=== PATIENT | male | born 1950 | race Caucasian/White ===

== ENCOUNTER 2016-10-15 08:23 | Emergency (ER) | payer OTHER, MEDICARE ==
[2016-10-15] MEDS ORDERED: ASPIRIN 81 MG CHEW TABLET As Ordered ONE (09:03)
[2016-10-15] MEDS ORDERED: NITROGLYCERIN 0.4 MG SUBL TABLET As Ordered ONE (09:03)
[2016-10-15 09:37] LABS: BASO # 0.1 K/mm3 (0.0-0.2); BASO % 0.8 % (0.0-1.0); EOS # 0.1 K/mm3 (0.0-0.50); EOS % 1.1 % (0.0-3.0); LARGE UNSTAINED CELL # 0.1 K/mm3 (0.0-0.4); LARGE UNSTAINED CELL % 1.4 % (0.0-4.0); LYMPH # 0.9 K/mm3 (1.5-4.5); LYMPH % 7.9 % (24.0-44.0); MEAN CORPUSCULAR HEMOGLOBIN 29.7 pg (27.0-33.0); MEAN CORPUSCULAR HGB CONC 32.7 g/dl (32.0-36.5); MONO # 0.7 K/mm3 (0.0-0.8); MONO % 6.9 % (0.0-5.0); NEUTROPHILS # 8.5 K/mm3 (1.8-7.7); NEUTROPHILS % 81.9 % (36.0-66.0); PLATELET COUNT, AUTOMATED 181 k/mm3 (150-450); RED CELL DISTRIBUTION WIDTH 12.8 % (11.5-14.5); WHITE BLOOD COUNT 10.3 K/mm3 (4.0-10.0)
[2016-10-15 09:55] LABS: BLOOD UREA NITROGEN 10 MG/DL (7-18); CALCIUM LEVEL 8.8 MG/DL (8.8-10.2); CARBON DIOXIDE LEVEL 31 MEQ/L (21-32); CHLORIDE LEVEL 104 MEQ/L (98-107); CREATININE FOR GFR 0.85 MG/DL (0.70-1.30); GLUCOSE, FASTING 114 MG/DL (80-110); POTASSIUM SERUM 4.2 MEQ/L (3.5-5.1)
[2016-10-15 10:01] LABS: ANION GAP 7 MEQ/L (8-16); SODIUM LEVEL 142 MEQ/L (136-145)
[2016-10-15] MEDS ORDERED: ACETAMINOPHEN TAB 650MG DOSE (2X325MG) As Ordered ONE (10:47)
--- NOTE | 2016-10-15 17:09 | EDDOCDS ---
Nurse's Notes [facility] Name: Anand Burger Age: 66 yrs Sex: Male : 1950 Arrival Date: 10/15/2016 Time: 08:23 Bed 12 Private MD: Eb Quintana H Diagnosis: Acute sinusitis;Chest pain, unspecified Presentation: 10/15 08:28 Presenting complaint: Patient states: head cold for 10 days. today developed chest kr3 'ache' on and off. Reports minimal cough with head stuffiness. Aspirin was not taken prior to arrival. Adult Sepsis Screening: The patient does not have new or worsening altered mentation. Patient's respiratory rate is less than 22. Systolic blood pressure is greater than 100. Patient has a qSOFA score of 0- Negative Sepsis Screen. Suicide/Homicide risk assessment- the patient denies having any suicidal and/or homicidal ideations and does not present with any other emotional, behavioral or mental health complaints. 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 Transition of care: patient was not received from another setting of care. 08:28 Acuity: ROWDY Level 3 kr3 08:28 Method Of Arrival: Walkin/Carried/Asstd kr3 Triage Assessment: 08:32 General: Appears in no apparent distress, comfortable, Behavior is cooperative. Pain: kr3 Location: chest Pain currently is 2 out of 10 on a pain scale. Quality of pain is described as aching. EENT: Reports pain in head Pain is 5 out of 10 on a pain scale. EENT: Reports nasal congestion. Cardiovascular: Chest pain is described as mild, radiates Does not radiate. episodes are intermittent began 2 hours prior to arrival. Respiratory: Respiratory effort is even, unlabored, Denies cough, shortness of breath. Derm: Skin is normal. Historical: - Allergies: Augmentin; - Home Meds: 1. aspirin 81 mg Oral tab 1 tab once daily (Last dose: 10/14/2016) 2. Aleve 220 mg Oral tab 1 tab every 8 hours (Last dose: 10/14/2016) 3. Loratadine Oral once daily (Last dose: 10/14/2016) 4. simvastatin 40 mg Oral tab 1 tab nightly (Last dose: 10/14/2016) 5. Multivitamin Oral 1 tab daily (Last dose: 10/14/2016) 6. ibuprofen 200 mg Oral cap 2 caps as needed - PMHx: High Cholesterol; Seasonal Allergies; - PSHx: left shoulder; - Social history: Smoking status: Patient states was never smoker of tobacco. No barriers to communication noted, The patient speaks fluent Martiniquais, Speaks appropriately for age. - Family history: Not pertinent. - : The pt / caregiver states he / she is not on anticoagulants. Home medication list is obtained from the patient. - Exposure Risk Screening:: None identified. Screenin:06 Screening information is obtained from the patient. Fall risk: No risks identified. bcj Assistance ADL's: requires no assistance with activities of daily living. Abuse/DV Screen: The patient / caregiver reports he/she is: not in a situation that causes fear, pain or injury. Nutritional screening: No deficits noted. Advance Directives: Currently, there is no health care proxy. home support is adequate. 17:01 Screening information is obtained from the patient. Fall risk: No risks identified. ja5 Assistance ADL's: requires no assistance with activities of daily living. Abuse/DV Screen: The patient / caregiver reports he/she is: not in a situation that causes fear, pain or injury. Nutritional screening: On no prescribed diet. Advance Directives: Currently, there is no health care proxy. There is no active DNR order. There is no living will. There is no Power of Farm Appraiser. home support is adequate. 17:02 Screening information is obtained from the patient. Fall risk: No risks identified. ja5 Assistance ADL's: requires no assistance with activities of daily living. Abuse/DV Screen: The patient / caregiver reports he/she is: not in a situation that causes fear, pain or injury. Nutritional screening: No deficits noted. On no prescribed diet. Advance Directives: Currently, there is no health care proxy. There is no active DNR order. There is no living will. There is no Power of Farm Appraiser. home support is adequate. Assessment: 10:55 General: Appears in no apparent distress, comfortable, Behavior is cooperative. Pain: bcj Denies pain. Neurological: Level of Consciousness is awake, alert, Oriented to person, place, time. Cardiovascular: Rhythm is sinus rhythm No ectopy. Chest pain is denied. Respiratory: Airway is patent Respiratory effort is even, unlabored, Respiratory pattern is regular. Derm: Skin is pink, warm & dry. 12:11 General: Appears in no apparent distress, comfortable, Behavior is cooperative. Pain: bcj Denies pain. Cardiovascular: Rhythm is sinus rhythm Chest pain is denied. Derm: Skin is pink, warm & dry. 13:42 General: Appears in no apparent distress, comfortable, Behavior is cooperative. Pain: bcj Denies pain. Neurological: Level of Consciousness is awake, alert, Oriented to person, place. Cardiovascular: Rhythm is sinus rhythm. Respiratory: Airway is patent Respiratory effort is even, unlabored. Derm: Skin is pink, warm & dry. 16:16 General: Appears in no apparent distress, comfortable, Behavior is cooperative. Pain: bcj Denies pain. Neurological: Level of Consciousness is awake, alert. Cardiovascular: Rhythm is sinus rhythm. Derm: Skin is pink, warm & dry. 17:00 General: Appears in no apparent distress, Behavior is appropriate for age, cooperative. ja5 Neurological: Level of Consciousness is awake, alert, Oriented to person, place, time. Cardiovascular: Rhythm is sinus rhythm Chest pain is denied. Respiratory: Airway is compromised Respiratory effort is even, unlabored, Respiratory pattern is regular. Derm: Skin is pink, warm & dry. Vital Signs: 08:32 BP 187 / 99; Pulse 102; Resp 16; Temp 98.3(O); Pulse Ox 97% on R/A; Weight 76.2 kg (R); kr3 Height 5 ft. 5 in. (165.10 cm) (R); 08:42 Pulse 96 MON; Pulse Ox 96% ; ja5 08:43 BP 176 / 85 (auto/); ja5 08:57 Pulse 92 MON; Pulse Ox 94% ; ja5 08:58 BP 160 / 78 (auto/); ja5 09:20 Pulse 54 MON; Pulse Ox 97% ; ja5 09:21 BP 87 / 43 (auto/); ja5 09:22 Pulse 54 MON; Pulse Ox 97% ; ja5 09:23 BP 91 / 55 (auto/); ja5 09:25 Pulse 66 MON; Pulse Ox 95% ; ja5 09:26 BP 118 / 63 (auto/); ja5 10:06 BP 118 / 63 RA Supine; Pulse 83; Resp 16; Temp 99.0(O); Pulse Ox 96% on R/A; rs6 10:06 BP 143 / 73 (auto/); bcj 10:06 Pulse 82 MON; Pulse Ox 94% ; bcj 10:21 BP 127 / 63 (auto/); bcj 10:21 Pulse 78 MON; Pulse Ox 96% ; bcj 10:36 BP 130 / 65 (auto/); bcj 10:36 Pulse 78 MON; Pulse Ox 95% ; bcj 10:51 BP 146 / 65 (auto/); bcj 10:51 Pulse 82 MON; Pulse Ox 98% ; bcj 11:06 BP 140 / 65 (auto/); bcj 11:06 Pulse 80 MON; Pulse Ox 95% ; bcj 11:21 BP 139 / 64 (auto/); bcj 11:21 Pulse 76 MON; Pulse Ox 95% ; bcj 11:36 BP 127 / 60 (auto/); bcj 11:36 Pulse 78 MON; Pulse Ox 94% ; bcj 11:51 BP 150 / 67 (auto/); bcj 11:51 Pulse 80 MON; Pulse Ox 94% ; bcj 12:06 BP 141 / 64 (auto/); bcj 12:06 Pulse 80 MON; Pulse Ox 93% ; bcj 16:59 BP 169 / 79; Pulse 81; Resp 14; Temp 98.8(O); Pulse Ox 95% ; Pain 2/10; ja5 08:32 Body Mass Index 27.96 (76.20 kg, 165.10 cm) kr3 Vitals: 08:32 Log In Time: October 15, 2016 at 08:22. kr3 10:55 Refer to monitor trend for complete vital signs trends. [facility] ED Course: 08:24 Patient visited by Anyi Mayfield Reg. lg 08:24 Eb Quintana is Private Physician. lg 08:24 Patient moved to Waiting lg 08:30 Triage Initiated kr3 08:36 Patient moved to 12 kr3 08:39 Patient visited by Jeremy Marshall RN. bcj 08:42 Cedrick Rivera MD is Attending Physician. br1 08:43 EKG done. (by ED staff). Reviewed by Cedrick Rivera MD. nb2 08:49 Patient visited by Cedrick Rivera MD. br1 09:15 [facility] Payment Agreement was scanned into [employer] and attached to record. lg 09:29 Inserted peripheral IV: 20gauge IV in left antecubital area. ja5 10:06 No apparent distress. Resting quietly. awaiting re-evaluation by ER physician. bcj 10:06 The patient / caregiver is instructed regarding the plan of care and ED course. Patient akua has correct armband on for positive identification. Placed in gown. Bed in low position. Call light in reach. Side rails up X 1. school lunch monitor on. Pulse ox on. NIBP on. 10:06 IV is intact. bcj 10:07 Patient visited by Jessica Steven PCA. rs6 10:21 Patient visited by Cedrick Rivera MD. br1 10:58 Patient visited by Jeremy Marshall RN. bcj 11:06 No apparent distress. Resting quietly. awaiting re-evaluation by ER physician. bcj 11:06 IV is intact. bcj 12:14 Patient visited by Jeremy Marshall RN. bcj 13:42 No apparent distress. Resting quietly. awaiting re-evaluation by ER physician. bcj 13:42 IV is intact. Labs drawn. (by ED staff). bcj 13:43 Patient visited by Jeremy Marshall RN. bcj 14:30 EKG done. (by ED staff). Reviewed by Cedrick Rivera MD. dem1 14:32 Patient visited by Eufemia Fu. dem1 16:16 No apparent distress. Resting quietly. Awaiting bed assignment. bcj 16:16 IV is intact. O2 via nasal cannula \T\ 2L/min. bcj 16:17 Patient visited by Jeremy Marshall RN. bcj 16:46 [facility] is Referral Physician. br1 16:46 Audie Grant MD is Referral Physician. br1 17:03 Discontinued IV bleeding controlled, pressure dressing applied, No redness/swelling at ja5 site. No procedures done that require assistance. Labs drawn. EKG done. Administered Medications: 09:13 Drug: Aspirin 324 mg [aspirin 81 mg chewable tablet (4 tabs)] Route: PO; ja5 09:13 Drug: Nitrostat 0.4 mg [Nitrostat 0.4 mg sublingual tablet (1 tabs)] Route: Sublingual; [facility] 10:48 Drug: Acetaminophen 650 mg [acetaminophen 325 mg tablet (2 tabs)] Route: PO; bcj Order Results: Lab Order: B-Type Natiuretic Peptide; SPEC'M 10/15/16 09:25 Test: BRAIN NATRIURETIC PEPTIDE; Value: 22.4; Range: <100; Units: PG/ML; Status: F Lab Order: Basic Metabolic Profile; SPEC'M 10/15/16 09:25 Test: GLUCOSE, FASTING; Value: 114; Range: 80-110; Abnormal: Above high normal; Units: MG/DL; Status: F Test: BLOOD UREA NITROGEN; Value: 10; Range: 7-18; Units: MG/DL; Status: F Test: CREATININE FOR GFR; Value: 0.85; Range: 0.70-1.30; Units: MG/DL; Status: F Test: SODIUM LEVEL; Value: 142; Range: 136-145; Units: MEQ/L; Status: F Test: POTASSIUM SERUM; Value: 4.2; Range: 3.5-5.1; Units: MEQ/L; Status: F Test: CHLORIDE LEVEL; Value: 104; Range: 98-107; Units: MEQ/L; Status: F Test: CARBON DIOXIDE LEVEL; Value: 31; Range: 21-32; Units: MEQ/L; Status: F Test: ANION GAP; Value: 7; Range: 8-16; Abnormal: Below low normal; Units: MEQ/L; Status: F Test: CALCIUM LEVEL; Value: 8.8; Range: 8.8-10.2; Units: MG/DL; Status: F Test Note: ; --- 10/15/16 1001 --- NA previously reported as: 142 MEQ/L Lab Order: CBC with Diff; SPEC'M 10/15/16 09:25 Test: WHITE BLOOD COUNT; Value: 10.3; Range: 4.0-10.0; Abnormal: Above high normal; Units: K/mm3; Status: F Test: RED BLOOD COUNT; Value: 4.91; Range: 4.30-6.10; Units: M/mm3; Status: F Test: HEMOGLOBIN; Value: 14.6; Range: 14.0-18.0; Units: g/dl; Status: F Test: HEMATOCRIT; Value: 44.6; Range: 42.0-52.0; Units: %; Status: F Test: MEAN CORPUSCULAR VOLUME; Value: 91.0; Range: 80.0-96.0; Units: fl; Status: F Test: MEAN CORPUSCULAR HEMOGLOBIN; Value: 29.7; Range: 27.0-33.0; Units: pg; Status: F Test: MEAN CORPUSCULAR HGB CONC; Value: 32.7; Range: 32.0-36.5; Units: g/dl; Status: F Test: RED CELL DISTRIBUTION WIDTH; Value: 12.8; Range: 11.5-14.5; Units: %; Status: F Test: PLATELET COUNT, AUTOMATED; Value: 181; Range: 150-450; Units: k/mm3; Status: F Test: NEUTROPHILS %; Value: 81.9; Range: 36.0-66.0; Abnormal: Above high normal; Units: %; Status: F Test: LYMPH %; Value: 7.9; Range: 24.0-44.0; Abnormal: Below low normal; Units: %; Status: F Test: MONO %; Value: 6.9; Range: 0.0-5.0; Abnormal: Above high normal; Units: %; Status: F Test: EOS %; Value: 1.1; Range: 0.0-3.0; Units: %; Status: F Test: BASO %; Value: 0.8; Range: 0.0-1.0; Units: %; Status: F Test: LARGE UNSTAINED CELL %; Value: 1.4; Range: 0.0-4.0; Units: %; Status: F Test: NEUTROPHILS #; Value: 8.5; Range: 1.8-7.7; Abnormal: Above high normal; Units: K/mm3; Status: F Test: LYMPH #; Value: 0.9; Range: 1.5-4.5; Abnormal: Below low normal; Units: K/mm3; Status: F Test: MONO #; Value: 0.7; Range: 0.0-0.8; Units: K/mm3; Status: F Test: EOS #; Value: 0.1; Range: 0.0-0.50; Units: K/mm3; Status: F Test: BASO #; Value: 0.1; Range: 0.0-0.2; Units: K/mm3; Status: F Test: LARGE UNSTAINED CELL #; Value: 0.1; Range: 0.0-0.4; Units: K/mm3; Status: F Lab Order: Cardiac Injury Profile; [facility] 10/15/16 09:25 Test: CPK CREATINE PHOSPHOKINASE; Value: 90; Range: 39-308; Units: U/L; Status: F Test: CK-MB VALUE MASS; Value: 1.0; Range: 0.0-3.6; Units: NG/ML; Status: F Test: MB/CK RELATIVE INDEX; Value: 1.11; Range: < OR =4; Status: F Test Note: ; DIAGNOSIS CRITERIA MMB ng/ml Relative Index (RI) NON-AMI < or = 5 N/A ASHER ZONE > 5 < or = 4 AMI > 5 > 4 Lab Order: Troponin; [facility] 10/15/16 09:25 Test: TROPONIN I; Value: < 0.02; Range: < 0.10; Units: NG/ML; Status: F Test Note: ; Troponin I Reference Interval for KS12 LOCI: 99th Percentile= 0.00-0.045 ng/ml Risk Stratification: <= 0.10 ng/ml Decreased Risk for Adverse Clinical Events. 0.10-1.50 ng/ml Increased Risk for Adverse Clinical Events. Evaluation of additional criterion and/or repeat testing in 2-6 hours is suggested to rule out myocardial damage. >= 1.50 ng/ml Indicative of Myocardial Injury. Lab Order: CARDIAC MARKER PANEL; [facility] 10/15/16 13:47 Test: CPK CREATINE PHOSPHOKINASE; Value: 79; Range: 39-308; Units: U/L; Status: F Test: CK-MB VALUE MASS; Value: 1.0; Range: 0.0-3.6; Units: NG/ML; Status: F Test: MB/CK RELATIVE INDEX; Value: 1.26; Range: < OR =4; Status: F Test: TROPONIN I; Value: < 0.02; Range: < 0.10; Units: NG/ML; Status: F Test Note: ; DIAGNOSIS CRITERIA MMB ng/ml Relative Index (RI) NON-AMI < or = 5 N/A ASHER ZONE > 5 < or = 4 AMI > 5 > 4 Outcome: 16:47 Discharge ordered by Provider. br1 17:03 Discharge Assessment: patient administered narcotics - no. The following High Risk 5 Discharge criteria are identified: None. Condition: stable. Property :Personal belongings accompany Pt. 17:07 No special radiology studies were completed. ja5 17:08 Patient left the ED. [email or web address] Signatures: Jeremy Marshall, RN RN Anyi Anderson, Reg Reg lg Tigist Quevedo,RN RN kr3 Cedrick Rivera MD MD br1 Eufemia Fu1 Jessica Steven, OFFICE CLERK ASSISTANT OFFICE CLERK ASSISTANT rs6 Cyndy Hernandez2 Naye Rios,RN RN ja5 Corrections: (The following items were deleted from the chart) 17:08 17:03 No special radiology studies were completed CT Study completed. 5 ja5 MTDD
--- NOTE | 2016-10-15 17:10 | EDDOCDS ---
Physician Documentation [facility] Name: Anand Burger Age: 66 yrs Sex: Male : 1950 Arrival Date: 10/15/2016 Time: 08:23 Bed 12 Private MD: Eb Quintana H Disposition: 10/15/16 16:47 Discharged to Home/Self Care. Impression: Acute sinusitis, Chest pain, unspecified. - Condition is Stable. - Discharge Instructions: Nonspecific Chest Pain, Sinusitis, Adult. - Prescriptions for Doxycycline Hyclate 100 mg Oral Tablet - take 1 tablet by ORAL route every 12 hours; 14 tablet. - Medication Reconciliation, Local Pharmacy Hours form. - Follow up: [facility]; When: 4 - 5 days; Reason: Recheck today's complaints. Follow up: Audie Grant MD; When: 4 - 5 days; Reason: Recheck today's complaints. - Problem is new. - Symptoms have improved. - Notes: You were seen in the ED for 10 days of sinus pressure and congestion concerning for sinusitis with chest pain today. Bloodwork along with EKG of the heart, chest Xray and cardiac monitoring showed no other acute findings. We have discussed the case with cardiology as well. As you are feeling better you may return home to follow up with Cardiology and your primary doctor - please call to arrange to be seen. You may take the antibiotics as well. Return to the ED for any return of chest pain, trouble breathing, lightheadedness, loss of consciousness or any other concerns. Historical: - Allergies: Augmentin; - Home Meds: 1. aspirin 81 mg Oral tab 1 tab once daily (Last dose: 10/14/2016) 2. Aleve 220 mg Oral tab 1 tab every 8 hours (Last dose: 10/14/2016) 3. Loratadine Oral once daily (Last dose: 10/14/2016) 4. simvastatin 40 mg Oral tab 1 tab nightly (Last dose: 10/14/2016) 5. Multivitamin Oral 1 tab daily (Last dose: 10/14/2016) 6. ibuprofen 200 mg Oral cap 2 caps as needed - PMHx: High Cholesterol; Seasonal Allergies; - PSHx: left shoulder; - Social history: Smoking status: Patient states was never smoker of tobacco. No barriers to communication noted, The patient speaks fluent Polish, Speaks appropriately for age. - Family history: Not pertinent. - : The pt / caregiver states he / she is not on anticoagulants. Home medication list is obtained from the patient. - Exposure Risk Screening:: None identified. Vital Signs: 10/15 08:32 BP 187 / 99; Pulse 102; Resp 16; Temp 98.3(O); Pulse Ox 97% on R/A; Weight 76.2 kg / kr3 167.99 lbs (R); Height 5 ft. 5 in. (165.10 cm) (R); 08:42 Pulse 96 MON; Pulse Ox 96% ; ja5 08:43 BP 176 / 85 (auto/); ja5 08:57 Pulse 92 MON; Pulse Ox 94% ; ja5 08:58 BP 160 / 78 (auto/); ja5 09:20 Pulse 54 MON; Pulse Ox 97% ; ja5 09:21 BP 87 / 43 (auto/); ja5 09:22 Pulse 54 MON; Pulse Ox 97% ; ja5 09:23 BP 91 / 55 (auto/); ja5 09:25 Pulse 66 MON; Pulse Ox 95% ; ja5 09:26 BP 118 / 63 (auto/); ja5 10:06 BP 118 / 63 RA Supine; Pulse 83; Resp 16; Temp 99.0(O); Pulse Ox 96% on R/A; rs6 10:06 BP 143 / 73 (auto/); bcj 10:06 Pulse 82 MON; Pulse Ox 94% ; bcj 10:21 BP 127 / 63 (auto/); bcj 10:21 Pulse 78 MON; Pulse Ox 96% ; bcj 10:36 BP 130 / 65 (auto/); bcj 10:36 Pulse 78 MON; Pulse Ox 95% ; bcj 10:51 BP 146 / 65 (auto/); bcj 10:51 Pulse 82 MON; Pulse Ox 98% ; bcj 11:06 BP 140 / 65 (auto/); bcj 11:06 Pulse 80 MON; Pulse Ox 95% ; bcj 11:21 BP 139 / 64 (auto/); bcj 11:21 Pulse 76 MON; Pulse Ox 95% ; bcj 11:36 BP 127 / 60 (auto/); bcj 11:36 Pulse 78 MON; Pulse Ox 94% ; bcj 11:51 BP 150 / 67 (auto/); bcj 11:51 Pulse 80 MON; Pulse Ox 94% ; bcj 12:06 BP 141 / 64 (auto/); bcj 12:06 Pulse 80 MON; Pulse Ox 93% ; bcj 16:59 BP 169 / 79; Pulse 81; Resp 14; Temp 98.8(O); Pulse Ox 95% ; Pain 2/10; ja5 08:32 Body Mass Index 27.96 (76.20 kg, 165.10 cm) kr3 MDM: 08:36 ECG WITH READING ER PHYS+CARDIAG ordered. EDMS 08:50 Hitcher/Pulse Ox/q 30 min VS ordered. br1 08:50 IV Saline Lock ordered. br1 08:50 Rhythm Strip to chart ordered. br1 08:50 Undress patient appropriately for examination ordered. br1 08:50 Aspirin 324 mg PO once ordered. br1 08:50 Nitrostat 0.4 mg Sublingual once ordered. br1 08:51 B-Type Natiuretic Peptide Ordered. EDMS 08:51 Basic Metabolic Profile Ordered. EDMS 08:51 CBC with Diff Ordered. EDMS 08:51 Cardiac Injury Profile Ordered. EDMS 08:51 Troponin Ordered. EDMS 08:51 Chest, 2 View (pa\E\lat) Ordered. EDMS 09:02 Financial registration complete. lg 09:15 [facility] Payment Agreement was scanned into [employer] and attached to record. lg 10:03 Recheck Vital Signs, perform reassessment and enter into [employer] ordered. br1 10:07 Basic Metabolic Profile Reviewed. br1 10:07 CBC with Diff Reviewed. br1 10:07 B-Type Natiuretic Peptide Reviewed. br1 10:07 Cardiac Injury Profile Reviewed. br1 10:07 Troponin Reviewed. br1 10:09 Repeat EKG (put time details section) ordered. br1 10:09 Redraw CIP &Troponin (put time in details section) ordered. br1 10:20 Acetaminophen Tablet 650 mg PO once ordered. br1 10:23 Redraw CIP &Troponin (put time in details section) complete. ar3 10:24 Repeat EKG (put time details section) complete. ar3 10:24 ECG WITH READING ER PHYS ordered. EDMS 10:25 CARDIAC MARKER PANEL Ordered. EDMS 12:10 REGULAR+DIET ordered. EDMS 16:04 CARDIAC MARKER PANEL Reviewed. br1 Administered Medications: 09:13 Drug: Aspirin 324 mg [aspirin 81 mg chewable tablet (4 tabs)] Route: PO; ja5 09:13 Drug: Nitrostat 0.4 mg [Nitrostat 0.4 mg sublingual tablet (1 tabs)] Route: Sublingual; ja5 10:48 Drug: Acetaminophen 650 mg [acetaminophen 325 mg tablet (2 tabs)] Route: PO; akua Signatures: Dispatcher [employer] EDJeremy Lombardi, RN RN Anyi Anderson, Reg Reg lg Tigist Quevedo,RN RN kr3 Cedrick Rivera MD MD br1 Sharla Gerber, WEALTH MANAGEMENT MANAGER WEALTH MANAGEMENT MANAGER ar3 Naye Rios,RN RN ja5 The chart was reviewed and I authenticate all verbal orders and agree with the evaluation and treatment provided.Attachments: 09:15 [facility] Payment Agreement lg MTDD
--- NOTE | 2016-10-16 12:58 | ECGEPIP ---
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
--- NOTE | 2016-10-16 13:05 | ECGEPIP ---
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
--- NOTE | 2016-10-17 18:09 | EDDOCDS ---
Physician Documentation [facility] Name: Anand Burger Age: 66 yrs Sex: Male : 1950 Arrival Date: 10/15/2016 Time: 08:23 Bed 12 Private MD: Eb Quintana H Disposition: 10/15/16 16:47 Discharged to Home/Self Care. Impression: Acute sinusitis, Chest pain, unspecified. - Condition is Stable. - Discharge Instructions: Nonspecific Chest Pain, Sinusitis, Adult. - Prescriptions for Doxycycline Hyclate 100 mg Oral Tablet - take 1 tablet by ORAL route every 12 hours; 14 tablet. - Medication Reconciliation, Local Pharmacy Hours form. - Follow up: [facility]; When: 4 - 5 days; Reason: Recheck today's complaints. Follow up: Audie Grant MD; When: 4 - 5 days; Reason: Recheck today's complaints. - Problem is new. - Symptoms have improved. - Notes: You were seen in the ED for 10 days of sinus pressure and congestion concerning for sinusitis with chest pain today. Bloodwork along with EKG of the heart, chest Xray and cardiac monitoring showed no other acute findings. We have discussed the case with cardiology as well. As you are feeling better you may return home to follow up with Cardiology and your primary doctor - please call to arrange to be seen. You may take the antibiotics as well. Return to the ED for any return of chest pain, trouble breathing, lightheadedness, loss of consciousness or any other concerns. Historical: - Allergies: Augmentin; - Home Meds: 1. aspirin 81 mg Oral tab 1 tab once daily (Last dose: 10/14/2016) 2. Aleve 220 mg Oral tab 1 tab every 8 hours (Last dose: 10/14/2016) 3. Loratadine Oral once daily (Last dose: 10/14/2016) 4. simvastatin 40 mg Oral tab 1 tab nightly (Last dose: 10/14/2016) 5. Multivitamin Oral 1 tab daily (Last dose: 10/14/2016) 6. ibuprofen 200 mg Oral cap 2 caps as needed - PMHx: High Cholesterol; Seasonal Allergies; - PSHx: left shoulder; - Social history: Smoking status: Patient states was never smoker of tobacco. No barriers to communication noted, The patient speaks fluent Monegasque, Speaks appropriately for age. - Family history: Not pertinent. - : The pt / caregiver states he / she is not on anticoagulants. Home medication list is obtained from the patient. - Exposure Risk Screening:: None identified. Vital Signs: 10/15 08:32 BP 187 / 99; Pulse 102; Resp 16; Temp 98.3(O); Pulse Ox 97% on R/A; Weight 76.2 kg / kr3 167.99 lbs (R); Height 5 ft. 5 in. (165.10 cm) (R); 08:42 Pulse 96 MON; Pulse Ox 96% ; ja5 08:43 BP 176 / 85 (auto/); ja5 08:57 Pulse 92 MON; Pulse Ox 94% ; ja5 08:58 BP 160 / 78 (auto/); ja5 09:20 Pulse 54 MON; Pulse Ox 97% ; ja5 09:21 BP 87 / 43 (auto/); ja5 09:22 Pulse 54 MON; Pulse Ox 97% ; ja5 09:23 BP 91 / 55 (auto/); ja5 09:25 Pulse 66 MON; Pulse Ox 95% ; ja5 09:26 BP 118 / 63 (auto/); ja5 10:06 BP 118 / 63 RA Supine; Pulse 83; Resp 16; Temp 99.0(O); Pulse Ox 96% on R/A; rs6 10:06 BP 143 / 73 (auto/); bcj 10:06 Pulse 82 MON; Pulse Ox 94% ; bcj 10:21 BP 127 / 63 (auto/); bcj 10:21 Pulse 78 MON; Pulse Ox 96% ; bcj 10:36 BP 130 / 65 (auto/); bcj 10:36 Pulse 78 MON; Pulse Ox 95% ; bcj 10:51 BP 146 / 65 (auto/); bcj 10:51 Pulse 82 MON; Pulse Ox 98% ; bcj 11:06 BP 140 / 65 (auto/); bcj 11:06 Pulse 80 MON; Pulse Ox 95% ; bcj 11:21 BP 139 / 64 (auto/); bcj 11:21 Pulse 76 MON; Pulse Ox 95% ; bcj 11:36 BP 127 / 60 (auto/); bcj 11:36 Pulse 78 MON; Pulse Ox 94% ; bcj 11:51 BP 150 / 67 (auto/); bcj 11:51 Pulse 80 MON; Pulse Ox 94% ; bcj 12:06 BP 141 / 64 (auto/); bcj 12:06 Pulse 80 MON; Pulse Ox 93% ; bcj 16:59 BP 169 / 79; Pulse 81; Resp 14; Temp 98.8(O); Pulse Ox 95% ; Pain 2/10; ja5 08:32 Body Mass Index 27.96 (76.20 kg, 165.10 cm) kr3 MDM: 08:36 ECG WITH READING ER PHYS+CARDIAG ordered. EDMS 08:50 Photo Specialist/Pulse Ox/q 30 min VS ordered. br1 08:50 IV Saline Lock ordered. br1 08:50 Rhythm Strip to chart ordered. br1 08:50 Undress patient appropriately for examination ordered. br1 08:50 Aspirin 324 mg PO once ordered. br1 08:50 Nitrostat 0.4 mg Sublingual once ordered. br1 08:51 B-Type Natiuretic Peptide Ordered. EDMS 08:51 Basic Metabolic Profile Ordered. EDMS 08:51 CBC with Diff Ordered. EDMS 08:51 Cardiac Injury Profile Ordered. EDMS 08:51 Troponin Ordered. EDMS 08:51 Chest, 2 View (pa\E\lat) Ordered. EDMS 09:02 Financial registration complete. lg 09:15 [facility] Payment Agreement was scanned into [employer] and attached to record. lg 10:03 Recheck Vital Signs, perform reassessment and enter into [employer] ordered. br1 10:07 Basic Metabolic Profile Reviewed. br1 10:07 CBC with Diff Reviewed. br1 10:07 B-Type Natiuretic Peptide Reviewed. br1 10:07 Cardiac Injury Profile Reviewed. br1 10:07 Troponin Reviewed. br1 10:09 Repeat EKG (put time details section) ordered. br1 10:09 Redraw CIP &Troponin (put time in details section) ordered. br1 10:20 Acetaminophen Tablet 650 mg PO once ordered. br1 10:23 Redraw CIP &Troponin (put time in details section) complete. ar3 10:24 Repeat EKG (put time details section) complete. ar3 10:24 ECG WITH READING ER PHYS ordered. EDMS 10:25 CARDIAC MARKER PANEL Ordered. EDMS 12:10 REGULAR+DIET ordered. EDMS 16:04 CARDIAC MARKER PANEL Reviewed. br1 10/16 15:05 T-Sheet-- Draft Copy was scanned into [employer] and attached to record. kf3 17:13 ECG/EKG was scanned into [employer] and attached to record. kf3 17:14 Trend VS was scanned into [employer] and attached to record. kf3 Administered Medications: 10/15 09:13 Drug: Aspirin 324 mg [aspirin 81 mg chewable tablet (4 tabs)] Route: PO; ja5 09:13 Drug: Nitrostat 0.4 mg [Nitrostat 0.4 mg sublingual tablet (1 tabs)] Route: Sublingual; ja5 10:48 Drug: Acetaminophen 650 mg [acetaminophen 325 mg tablet (2 tabs)] Route: PO; akua Signatures: Dispatcher [employer] EDJeremy Lombardi RN RN bcj Anyi Mayfield, Reg Reg lg Tigist Quevedo,RN RN kr3 Sanchez Powers, Reg Reg kf3 Cedrick Rivera MD MD br1 Sharla Gerber, SAGGER PREPARER SAGGER PREPARER ar3 Naye Rios,RN RN ja5 The chart was reviewed and I authenticate all verbal orders and agree with the evaluation and treatment provided.Attachments: 09:15 [facility] Payment Agreement lg 10/16 15:05 T-Sheet-- Draft Copy kf3 17:13 ECG/EKG kf3 Chart Complete MTDD
--- NOTE | 2016-10-17 18:09 | EDDOCDS ---
Physician Documentation [facility] Name: Anand Burger Age: 66 yrs Sex: Male : 1950 Arrival Date: 10/15/2016 Time: 08:23 Bed 12 Private MD: Eb Quintana H Disposition: 10/15/16 16:47 Discharged to Home/Self Care. Impression: Acute sinusitis, Chest pain, unspecified. - Condition is Stable. - Discharge Instructions: Nonspecific Chest Pain, Sinusitis, Adult. - Prescriptions for Doxycycline Hyclate 100 mg Oral Tablet - take 1 tablet by ORAL route every 12 hours; 14 tablet. - Medication Reconciliation, Local Pharmacy Hours form. - Follow up: [facility]; When: 4 - 5 days; Reason: Recheck today's complaints. Follow up: Audie Grant MD; When: 4 - 5 days; Reason: Recheck today's complaints. - Problem is new. - Symptoms have improved. - Notes: You were seen in the ED for 10 days of sinus pressure and congestion concerning for sinusitis with chest pain today. Bloodwork along with EKG of the heart, chest Xray and cardiac monitoring showed no other acute findings. We have discussed the case with cardiology as well. As you are feeling better you may return home to follow up with Cardiology and your primary doctor - please call to arrange to be seen. You may take the antibiotics as well. Return to the ED for any return of chest pain, trouble breathing, lightheadedness, loss of consciousness or any other concerns. Historical: - Allergies: Augmentin; - Home Meds: 1. aspirin 81 mg Oral tab 1 tab once daily (Last dose: 10/14/2016) 2. Aleve 220 mg Oral tab 1 tab every 8 hours (Last dose: 10/14/2016) 3. Loratadine Oral once daily (Last dose: 10/14/2016) 4. simvastatin 40 mg Oral tab 1 tab nightly (Last dose: 10/14/2016) 5. Multivitamin Oral 1 tab daily (Last dose: 10/14/2016) 6. ibuprofen 200 mg Oral cap 2 caps as needed - PMHx: High Cholesterol; Seasonal Allergies; - PSHx: left shoulder; - Social history: Smoking status: Patient states was never smoker of tobacco. No barriers to communication noted, The patient speaks fluent Tongan, Speaks appropriately for age. - Family history: Not pertinent. - : The pt / caregiver states he / she is not on anticoagulants. Home medication list is obtained from the patient. - Exposure Risk Screening:: None identified. Vital Signs: 10/15 08:32 BP 187 / 99; Pulse 102; Resp 16; Temp 98.3(O); Pulse Ox 97% on R/A; Weight 76.2 kg / kr3 167.99 lbs (R); Height 5 ft. 5 in. (165.10 cm) (R); 08:42 Pulse 96 MON; Pulse Ox 96% ; ja5 08:43 BP 176 / 85 (auto/); ja5 08:57 Pulse 92 MON; Pulse Ox 94% ; ja5 08:58 BP 160 / 78 (auto/); ja5 09:20 Pulse 54 MON; Pulse Ox 97% ; ja5 09:21 BP 87 / 43 (auto/); ja5 09:22 Pulse 54 MON; Pulse Ox 97% ; ja5 09:23 BP 91 / 55 (auto/); ja5 09:25 Pulse 66 MON; Pulse Ox 95% ; ja5 09:26 BP 118 / 63 (auto/); ja5 10:06 BP 118 / 63 RA Supine; Pulse 83; Resp 16; Temp 99.0(O); Pulse Ox 96% on R/A; rs6 10:06 BP 143 / 73 (auto/); bcj 10:06 Pulse 82 MON; Pulse Ox 94% ; bcj 10:21 BP 127 / 63 (auto/); bcj 10:21 Pulse 78 MON; Pulse Ox 96% ; bcj 10:36 BP 130 / 65 (auto/); bcj 10:36 Pulse 78 MON; Pulse Ox 95% ; bcj 10:51 BP 146 / 65 (auto/); bcj 10:51 Pulse 82 MON; Pulse Ox 98% ; bcj 11:06 BP 140 / 65 (auto/); bcj 11:06 Pulse 80 MON; Pulse Ox 95% ; bcj 11:21 BP 139 / 64 (auto/); bcj 11:21 Pulse 76 MON; Pulse Ox 95% ; bcj 11:36 BP 127 / 60 (auto/); bcj 11:36 Pulse 78 MON; Pulse Ox 94% ; bcj 11:51 BP 150 / 67 (auto/); bcj 11:51 Pulse 80 MON; Pulse Ox 94% ; bcj 12:06 BP 141 / 64 (auto/); bcj 12:06 Pulse 80 MON; Pulse Ox 93% ; bcj 16:59 BP 169 / 79; Pulse 81; Resp 14; Temp 98.8(O); Pulse Ox 95% ; Pain 2/10; ja5 08:32 Body Mass Index 27.96 (76.20 kg, 165.10 cm) kr3 MDM: 08:36 ECG WITH READING ER PHYS+CARDIAG ordered. EDMS 08:50 Hospital Chief Financial Officer/Pulse Ox/q 30 min VS ordered. br1 08:50 IV Saline Lock ordered. br1 08:50 Rhythm Strip to chart ordered. br1 08:50 Undress patient appropriately for examination ordered. br1 08:50 Aspirin 324 mg PO once ordered. br1 08:50 Nitrostat 0.4 mg Sublingual once ordered. br1 08:51 B-Type Natiuretic Peptide Ordered. EDMS 08:51 Basic Metabolic Profile Ordered. EDMS 08:51 CBC with Diff Ordered. EDMS 08:51 Cardiac Injury Profile Ordered. EDMS 08:51 Troponin Ordered. EDMS 08:51 Chest, 2 View (pa\E\lat) Ordered. EDMS 09:02 Financial registration complete. lg 09:15 [facility] Payment Agreement was scanned into [employer] and attached to record. lg 10:03 Recheck Vital Signs, perform reassessment and enter into [employer] ordered. br1 10:07 Basic Metabolic Profile Reviewed. br1 10:07 CBC with Diff Reviewed. br1 10:07 B-Type Natiuretic Peptide Reviewed. br1 10:07 Cardiac Injury Profile Reviewed. br1 10:07 Troponin Reviewed. br1 10:09 Repeat EKG (put time details section) ordered. br1 10:09 Redraw CIP &Troponin (put time in details section) ordered. br1 10:20 Acetaminophen Tablet 650 mg PO once ordered. br1 10:23 Redraw CIP &Troponin (put time in details section) complete. ar3 10:24 Repeat EKG (put time details section) complete. ar3 10:24 ECG WITH READING ER PHYS ordered. EDMS 10:25 CARDIAC MARKER PANEL Ordered. EDMS 12:10 REGULAR+DIET ordered. EDMS 16:04 CARDIAC MARKER PANEL Reviewed. br1 10/16 15:05 T-Sheet-- Draft Copy was scanned into [employer] and attached to record. kf3 17:13 ECG/EKG was scanned into [employer] and attached to record. kf3 17:14 Trend VS was scanned into [employer] and attached to record. kf3 Administered Medications: 10/15 09:13 Drug: Aspirin 324 mg [aspirin 81 mg chewable tablet (4 tabs)] Route: PO; ja5 09:13 Drug: Nitrostat 0.4 mg [Nitrostat 0.4 mg sublingual tablet (1 tabs)] Route: Sublingual; ja5 10:48 Drug: Acetaminophen 650 mg [acetaminophen 325 mg tablet (2 tabs)] Route: PO; akua Signatures: Dispatcher [employer] EDJeremy Lombardi RN RN bcj Anyi Mayfield, Reg Reg lg Tigist Quevedo,RN RN kr3 Sanchez Powers, Reg Reg kf3 Cedrick Rivera MD MD br1 Sharla Gerber, STRETCH BOX TENDER STRETCH BOX TENDER ar3 Naye Rios,RN RN ja5 The chart was reviewed and I authenticate all verbal orders and agree with the evaluation and treatment provided.Attachments: 09:15 [facility] Payment Agreement lg 10/16 15:05 T-Sheet-- Draft Copy kf3 17:13 ECG/EKG kf3 Chart Complete MTDD
--- NOTE | 2016-10-17 18:10 | EDDOCDS ---
Nurse's Notes [facility] Name: Nilo Rubio Age: 66 yrs Sex: Male : 1950 Arrival Date: 10/15/2016 Time: 08:23 Bed 12 Private MD: Eb Quintana H Diagnosis: Acute sinusitis;Chest pain, unspecified Presentation: 10/15 08:28 Presenting complaint: Patient states: head cold for 10 days. today developed chest kr3 'ache' on and off. Reports minimal cough with head stuffiness. Aspirin was not taken prior to arrival. Adult Sepsis Screening: The patient does not have new or worsening altered mentation. Patient's respiratory rate is less than 22. Systolic blood pressure is greater than 100. Patient has a qSOFA score of 0- Negative Sepsis Screen. Suicide/Homicide risk assessment- the patient denies having any suicidal and/or homicidal ideations and does not present with any other emotional, behavioral or mental health complaints. 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 Transition of care: patient was not received from another setting of care. 08:28 Acuity: ROWDY Level 3 kr3 08:28 Method Of Arrival: Walkin/Carried/Asstd kr3 Triage Assessment: 08:32 General: Appears in no apparent distress, comfortable, Behavior is cooperative. Pain: kr3 Location: chest Pain currently is 2 out of 10 on a pain scale. Quality of pain is described as aching. EENT: Reports pain in head Pain is 5 out of 10 on a pain scale. EENT: Reports nasal congestion. Cardiovascular: Chest pain is described as mild, radiates Does not radiate. episodes are intermittent began 2 hours prior to arrival. Respiratory: Respiratory effort is even, unlabored, Denies cough, shortness of breath. Derm: Skin is normal. Historical: - Allergies: Augmentin; - Home Meds: 1. aspirin 81 mg Oral tab 1 tab once daily (Last dose: 10/14/2016) 2. Aleve 220 mg Oral tab 1 tab every 8 hours (Last dose: 10/14/2016) 3. Loratadine Oral once daily (Last dose: 10/14/2016) 4. simvastatin 40 mg Oral tab 1 tab nightly (Last dose: 10/14/2016) 5. Multivitamin Oral 1 tab daily (Last dose: 10/14/2016) 6. ibuprofen 200 mg Oral cap 2 caps as needed - PMHx: High Cholesterol; Seasonal Allergies; - PSHx: left shoulder; - Social history: Smoking status: Patient states was never smoker of tobacco. No barriers to communication noted, The patient speaks fluent Moldovan, Speaks appropriately for age. - Family history: Not pertinent. - : The pt / caregiver states he / she is not on anticoagulants. Home medication list is obtained from the patient. - Exposure Risk Screening:: None identified. Screenin:06 Screening information is obtained from the patient. Fall risk: No risks identified. bcj Assistance ADL's: requires no assistance with activities of daily living. Abuse/DV Screen: The patient / caregiver reports he/she is: not in a situation that causes fear, pain or injury. Nutritional screening: No deficits noted. Advance Directives: Currently, there is no health care proxy. home support is adequate. 17:01 Screening information is obtained from the patient. Fall risk: No risks identified. ja5 Assistance ADL's: requires no assistance with activities of daily living. Abuse/DV Screen: The patient / caregiver reports he/she is: not in a situation that causes fear, pain or injury. Nutritional screening: On no prescribed diet. Advance Directives: Currently, there is no health care proxy. There is no active DNR order. There is no living will. There is no Power of Technology Program Manager. home support is adequate. 17:02 Screening information is obtained from the patient. Fall risk: No risks identified. ja5 Assistance ADL's: requires no assistance with activities of daily living. Abuse/DV Screen: The patient / caregiver reports he/she is: not in a situation that causes fear, pain or injury. Nutritional screening: No deficits noted. On no prescribed diet. Advance Directives: Currently, there is no health care proxy. There is no active DNR order. There is no living will. There is no Power of Technology Program Manager. home support is adequate. Assessment: 10:55 General: Appears in no apparent distress, comfortable, Behavior is cooperative. Pain: bcj Denies pain. Neurological: Level of Consciousness is awake, alert, Oriented to person, place, time. Cardiovascular: Rhythm is sinus rhythm No ectopy. Chest pain is denied. Respiratory: Airway is patent Respiratory effort is even, unlabored, Respiratory pattern is regular. Derm: Skin is pink, warm & dry. 12:11 General: Appears in no apparent distress, comfortable, Behavior is cooperative. Pain: bcj Denies pain. Cardiovascular: Rhythm is sinus rhythm Chest pain is denied. Derm: Skin is pink, warm & dry. 13:42 General: Appears in no apparent distress, comfortable, Behavior is cooperative. Pain: bcj Denies pain. Neurological: Level of Consciousness is awake, alert, Oriented to person, place. Cardiovascular: Rhythm is sinus rhythm. Respiratory: Airway is patent Respiratory effort is even, unlabored. Derm: Skin is pink, warm & dry. 16:16 General: Appears in no apparent distress, comfortable, Behavior is cooperative. Pain: bcj Denies pain. Neurological: Level of Consciousness is awake, alert. Cardiovascular: Rhythm is sinus rhythm. Derm: Skin is pink, warm & dry. 17:00 General: Appears in no apparent distress, Behavior is appropriate for age, cooperative. ja5 Neurological: Level of Consciousness is awake, alert, Oriented to person, place, time. Cardiovascular: Rhythm is sinus rhythm Chest pain is denied. Respiratory: Airway is compromised Respiratory effort is even, unlabored, Respiratory pattern is regular. Derm: Skin is pink, warm & dry. Vital Signs: 08:32 BP 187 / 99; Pulse 102; Resp 16; Temp 98.3(O); Pulse Ox 97% on R/A; Weight 76.2 kg (R); kr3 Height 5 ft. 5 in. (165.10 cm) (R); 08:42 Pulse 96 MON; Pulse Ox 96% ; ja5 08:43 BP 176 / 85 (auto/); ja5 08:57 Pulse 92 MON; Pulse Ox 94% ; ja5 08:58 BP 160 / 78 (auto/); ja5 09:20 Pulse 54 MON; Pulse Ox 97% ; ja5 09:21 BP 87 / 43 (auto/); ja5 09:22 Pulse 54 MON; Pulse Ox 97% ; ja5 09:23 BP 91 / 55 (auto/); ja5 09:25 Pulse 66 MON; Pulse Ox 95% ; ja5 09:26 BP 118 / 63 (auto/); ja5 10:06 BP 118 / 63 RA Supine; Pulse 83; Resp 16; Temp 99.0(O); Pulse Ox 96% on R/A; rs6 10:06 BP 143 / 73 (auto/); bcj 10:06 Pulse 82 MON; Pulse Ox 94% ; bcj 10:21 BP 127 / 63 (auto/); bcj 10:21 Pulse 78 MON; Pulse Ox 96% ; bcj 10:36 BP 130 / 65 (auto/); bcj 10:36 Pulse 78 MON; Pulse Ox 95% ; bcj 10:51 BP 146 / 65 (auto/); bcj 10:51 Pulse 82 MON; Pulse Ox 98% ; bcj 11:06 BP 140 / 65 (auto/); bcj 11:06 Pulse 80 MON; Pulse Ox 95% ; bcj 11:21 BP 139 / 64 (auto/); bcj 11:21 Pulse 76 MON; Pulse Ox 95% ; bcj 11:36 BP 127 / 60 (auto/); bcj 11:36 Pulse 78 MON; Pulse Ox 94% ; bcj 11:51 BP 150 / 67 (auto/); bcj 11:51 Pulse 80 MON; Pulse Ox 94% ; bcj 12:06 BP 141 / 64 (auto/); bcj 12:06 Pulse 80 MON; Pulse Ox 93% ; bcj 16:59 BP 169 / 79; Pulse 81; Resp 14; Temp 98.8(O); Pulse Ox 95% ; Pain 2/10; ja5 08:32 Body Mass Index 27.96 (76.20 kg, 165.10 cm) kr3 Vitals: 08:32 Log In Time: October 15, 2016 at 08:22. kr3 10:55 Refer to monitor trend for complete vital signs trends. [facility] ED Course: 08:24 Patient visited by Anyi Mayfield Reg. lg 08:24 Eb Quintana is Private Physician. lg 08:24 Patient moved to Waiting lg 08:30 Triage Initiated kr3 08:36 Patient moved to 12 kr3 08:39 Patient visited by Jeremy Marshall RN. bcj 08:42 Chloé Rivera MD is Attending Physician. br1 08:43 EKG done. (by ED staff). Reviewed by Chloé Rivera MD. nb2 08:49 Patient visited by Chloé Rivera MD. br1 09:15 [id number] Payment Agreement was scanned into [email or web address] and attached to record. lg 09:29 Inserted peripheral IV: 20gauge IV in left antecubital area. ja5 10:06 No apparent distress. Resting quietly. awaiting re-evaluation by ER physician. bcj 10:06 The patient / caregiver is instructed regarding the plan of care and ED course. Patient akua has correct armband on for positive identification. Placed in gown. Bed in low position. Call light in reach. Side rails up X 1. consumer advocate on. Pulse ox on. NIBP on. 10:06 IV is intact. bcj 10:07 Patient visited by Jessica Steven PCA. rs6 10:21 Patient visited by Chloé Rivera MD. br1 10:58 Patient visited by Jeremy Marshall RN. bcj 11:06 No apparent distress. Resting quietly. awaiting re-evaluation by ER physician. bcj 11:06 IV is intact. bcj 12:14 Patient visited by Jeremy Marshall RN. bcj 13:42 No apparent distress. Resting quietly. awaiting re-evaluation by ER physician. bcj 13:42 IV is intact. Labs drawn. (by ED staff). bcj 13:43 Patient visited by Jeremy Marshall RN. bcj 14:30 EKG done. (by ED staff). Reviewed by Chloé Rivera MD. dem1 14:32 Patient visited by Eufemia Fu. dem1 16:16 No apparent distress. Resting quietly. Awaiting bed assignment. bcj 16:16 IV is intact. O2 via nasal cannula \T\ 2L/min. bcj 16:17 Patient visited by Jeremy Marshall RN. bcj 16:46 [facility] is Referral Physician. br1 16:46 Audie Grant MD is Referral Physician. br1 17:03 Discontinued IV bleeding controlled, pressure dressing applied, No redness/swelling at ja5 site. No procedures done that require assistance. Labs drawn. EKG done. 10/16 13:07 EKG-ADULT Returned. EDMS 13:07 ECG WITH READING ER PHYS Returned. EDMS 15:05 T-Sheet-- Draft Copy was scanned into [email or web address] and attached to record. kf3 17:13 ECG/EKG was scanned into [email or web address] and attached to record. kf3 17:14 Trend VS was scanned into [email or web address] and attached to record. kf3 Administered Medications: 10/15 09:13 Drug: Aspirin 324 mg [aspirin 81 mg chewable tablet (4 tabs)] Route: PO; 09:13 Drug: Nitrostat 0.4 mg [Nitrostat 0.4 mg sublingual tablet (1 tabs)] Route: Sublingual; 10:48 Drug: Acetaminophen 650 mg [acetaminophen 325 mg tablet (2 tabs)] Route: PO; [facility] Attachments: 17:14 Trend VS kf3 Order Results: Lab Order: B-Type Natiuretic Peptide; SPEC'M 10/15/16 09:25 Test: BRAIN NATRIURETIC PEPTIDE; Value: 22.4; Range: <100; Units: PG/ML; Status: F Lab Order: Basic Metabolic Profile; SPEC'M 10/15/16 09:25 Test: GLUCOSE, FASTING; Value: 114; Range: 80-110; Abnormal: Above high normal; Units: MG/DL; Status: F Test: BLOOD UREA NITROGEN; Value: 10; Range: 7-18; Units: MG/DL; Status: F Test: CREATININE FOR GFR; Value: 0.85; Range: 0.70-1.30; Units: MG/DL; Status: F Test: SODIUM LEVEL; Value: 142; Range: 136-145; Units: MEQ/L; Status: F Test: POTASSIUM SERUM; Value: 4.2; Range: 3.5-5.1; Units: MEQ/L; Status: F Test: CHLORIDE LEVEL; Value: 104; Range: 98-107; Units: MEQ/L; Status: F Test: CARBON DIOXIDE LEVEL; Value: 31; Range: 21-32; Units: MEQ/L; Status: F Test: ANION GAP; Value: 7; Range: 8-16; Abnormal: Below low normal; Units: MEQ/L; Status: F Test: CALCIUM LEVEL; Value: 8.8; Range: 8.8-10.2; Units: MG/DL; Status: F Test Note: ; --- 10/15/16 1001 --- NA previously reported as: 142 MEQ/L Lab Order: CBC with Diff; SPEC'M 10/15/16 09:25 Test: WHITE BLOOD COUNT; Value: 10.3; Range: 4.0-10.0; Abnormal: Above high normal; Units: K/mm3; Status: F Test: RED BLOOD COUNT; Value: 4.91; Range: 4.30-6.10; Units: M/mm3; Status: F Test: HEMOGLOBIN; Value: 14.6; Range: 14.0-18.0; Units: g/dl; Status: F Test: HEMATOCRIT; Value: 44.6; Range: 42.0-52.0; Units: %; Status: F Test: MEAN CORPUSCULAR VOLUME; Value: 91.0; Range: 80.0-96.0; Units: fl; Status: F Test: MEAN CORPUSCULAR HEMOGLOBIN; Value: 29.7; Range: 27.0-33.0; Units: pg; Status: F Test: MEAN CORPUSCULAR HGB CONC; Value: 32.7; Range: 32.0-36.5; Units: g/dl; Status: F Test: RED CELL DISTRIBUTION WIDTH; Value: 12.8; Range: 11.5-14.5; Units: %; Status: F Test: PLATELET COUNT, AUTOMATED; Value: 181; Range: 150-450; Units: k/mm3; Status: F Test: NEUTROPHILS %; Value: 81.9; Range: 36.0-66.0; Abnormal: Above high normal; Units: %; Status: F Test: LYMPH %; Value: 7.9; Range: 24.0-44.0; Abnormal: Below low normal; Units: %; Status: F Test: MONO %; Value: 6.9; Range: 0.0-5.0; Abnormal: Above high normal; Units: %; Status: F Test: EOS %; Value: 1.1; Range: 0.0-3.0; Units: %; Status: F Test: BASO %; Value: 0.8; Range: 0.0-1.0; Units: %; Status: F Test: LARGE UNSTAINED CELL %; Value: 1.4; Range: 0.0-4.0; Units: %; Status: F Test: NEUTROPHILS #; Value: 8.5; Range: 1.8-7.7; Abnormal: Above high normal; Units: K/mm3; Status: F Test: LYMPH #; Value: 0.9; Range: 1.5-4.5; Abnormal: Below low normal; Units: K/mm3; Status: F Test: MONO #; Value: 0.7; Range: 0.0-0.8; Units: K/mm3; Status: F Test: EOS #; Value: 0.1; Range: 0.0-0.50; Units: K/mm3; Status: F Test: BASO #; Value: 0.1; Range: 0.0-0.2; Units: K/mm3; Status: F Test: LARGE UNSTAINED CELL #; Value: 0.1; Range: 0.0-0.4; Units: K/mm3; Status: F Lab Order: Cardiac Injury Profile; [facility] 10/15/16 09:25 Test: CPK CREATINE PHOSPHOKINASE; Value: 90; Range: 39-308; Units: U/L; Status: F Test: CK-MB VALUE MASS; Value: 1.0; Range: 0.0-3.6; Units: NG/ML; Status: F Test: MB/CK RELATIVE INDEX; Value: 1.11; Range: < OR =4; Status: F Test Note: ; DIAGNOSIS CRITERIA MMB ng/ml Relative Index (RI) NON-AMI < or = 5 N/A ASHER ZONE > 5 < or = 4 AMI > 5 > 4 Lab Order: Troponin; [facility] 10/15/16 09:25 Test: TROPONIN I; Value: < 0.02; Range: < 0.10; Units: NG/ML; Status: F Test Note: ; Troponin I Reference Interval for Ibetor LOCI: 99th Percentile= 0.00-0.045 ng/ml Risk Stratification: <= 0.10 ng/ml Decreased Risk for Adverse Clinical Events. 0.10-1.50 ng/ml Increased Risk for Adverse Clinical Events. Evaluation of additional criterion and/or repeat testing in 2-6 hours is suggested to rule out myocardial damage. >= 1.50 ng/ml Indicative of Myocardial Injury. Lab Order: CARDIAC MARKER PANEL; [facility] 10/15/16 13:47 Test: CPK CREATINE PHOSPHOKINASE; Value: 79; Range: 39-308; Units: U/L; Status: F Test: CK-MB VALUE MASS; Value: 1.0; Range: 0.0-3.6; Units: NG/ML; Status: F Test: MB/CK RELATIVE INDEX; Value: 1.26; Range: < OR =4; Status: F Test: TROPONIN I; Value: < 0.02; Range: < 0.10; Units: NG/ML; Status: F Test Note: ; DIAGNOSIS CRITERIA MMB ng/ml Relative Index (RI) NON-AMI < or = 5 N/A ASHER ZONE > 5 < or = 4 AMI > 5 > 4 Radiology Order: EKG-ADULT Test: EKG-ADULT REASON FOR EXAMINATION: Chest Pain; Stationary ECG Study; [facility] ED; ; Test Date: 2016-10-15; Pat Name: NILO RUBIO Department:; Room: -; Gender: M Social Services Manager: mandy; : 1950 Requested By: CHLOÉ Conti; Order Number: [id number] Reading MD: Yanely Justice; Measurements; Intervals [place]; Rate: 97 P: 48; AL: 178 QRS: -21; QRSD: 157 T: 6; QT: 371; QTc: 472; Interpretive Statements; SINUS RHYTHM; INDETERMINATE AXIS; RIGHT BUNDLE BRANCH BLOCK; NO PRIOR FOR COMPARISON; Electronically Signed On 10-16-2016 12:58:12 EST by Yanely Justice; Radiology Order: ECG WITH READING ER PHYS Test: ECG WITH READING ER PHYS REASON FOR EXAMINATION: CHEST DISCOMFORT; Stationary ECG Study; [facility] ED; ; Test Date: 2016-10-15; Pat Name: NILO DODDE Department:; Room: -; Gender: M Social Services Manager: sarthak; : 1950 Requested By: CHLOÉ Conti; Order Number: [id number] Reading MD: Yanely Justice; Measurements; Intervals [place]; Rate: 83 P: 49; AL: 182 QRS: -27; QRSD: 157 T: 12; QT: 399; QTc: 469; Interpretive Statements; SINUS RHYTHM; BORDERLINE LEFT AXIS DEVIATION; RIGHT BUNDLE BRANCH BLOCK; DECREASED RATE 10/15/16; Electronically Signed On 10-16-2016 13:04:48 EST by Yanely Justice; Outcome: 01/21 16:47 Discharge ordered by Provider. br1 17:03 Discharge Assessment: patient administered narcotics - no. The following High Risk [facility] Discharge criteria are identified: None. Condition: stable. Property :Personal belongings accompany Pt. 17:07 No special radiology studies were completed. ja5 17:08 Patient left the ED. 5 Signatures: Dispatcher [employer] EDJeremy Lombardi, RN RN Anyi Anderson, Reg Reg lg Tigist QuevedoRN RN kr3 Sanchez Powers, Reg Reg kf3 Chloé Rivera MD MD br1 Eufemia Fu Rebecca, BEHAVIORAL GENETICIST BEHAVIORAL GENETICIST rs6 Cyndy Hernandez2 Naye Rios,RN RN ja5 Corrections: (The following items were deleted from the chart) 17:08 17:03 No special radiology studies were completed CT Study completed. [facility] ja Chart Complete MTDD
--- NOTE | 2016-10-21 10:07 | REP ---
RE-DICTATION PA AND LATERAL CHEST: The previous dictation by Dr. Williamson cannot be signed by Dr. Williamson and I have been told we have to re-dictate the case. COMPARISON: 10/22/2012 Lung abraham are clear. The cardiac size is normal. The alan, mediastinum, and bony thorax are unremarkable. There is slight elevation of the right hemidiaphragm, not significantly changed. There is mild thoracic scoliosis convex left. IMPRESSION: There are no acute cardiopulmonary findings. A stat report was given by Dr. Williamson at the completion of her original dictation on 10/15/2016 at 9:21 a.m. Signed by Christopher Mane MD 10/21/2016 07:45 P
== END 2016-10-15 17:08 | disposition home or self-care (01) ==
LOC: M ED 08:23
DX: R07.9 Chest pain, unspecified (principal); J01.90 Acute sinusitis, unspecified; R94.31 Abnormal electrocardiogram [ECG] [EKG]; E78.00 Pure hypercholesterolemia, unspecified; J30.2 Other seasonal allergic rhinitis; Z79.899 Other long term (current) drug therapy; Z79.82 Long term (current) use of aspirin; Z88.1 Allergy status to other antibiotic agents

== ENCOUNTER 2017-09-22 10:24 | Emergency (ER) | payer MEDICARE, MEDICAID, OTHER ==
[2017-09-22 11:44] LABS: BASO # 0.1 10^3/uL (0.0-0.2); BASO % 0.5 % (0.0-1.0); EOS % 0.4 % (0.0-3.0); IMMATURE GRANULOCYTE % 0.3 % (0-0); LYMPH # 0.9 10^3/uL (1.5-4.5); LYMPH % 8.1 % (24.0-44.0); MEAN CORPUSCULAR HEMOGLOBIN 30.4 pg (27.0-33.0); MEAN CORPUSCULAR HGB CONC 34.9 g/dl (32.0-36.5); MEAN CORPUSCULAR VOLUME 87.1 fl (80.0-96.0); MONO % 9.1 % (0.0-5.0); NEUTROPHILS # 8.9 10^3/uL (1.8-7.7); NEUTROPHILS % 81.6 % (36.0-66.0); PLATELET COUNT, AUTOMATED 235 10^3/uL (150-450); RED CELL DISTRIBUTION WIDTH 11.9 % (11.5-14.5); WHITE BLOOD COUNT 10.9 10^3/uL (4.0-10.0)
[2017-09-22 11:52] LABS: ALBUMIN 4.1 GM/DL (3.2-5.2); ALBUMIN/GLOBULIN RATIO 1.03 (1.00-1.93); ALKALINE PHOSPHATASE 94 U/L (45-117); ALT/SGPT 23 U/L (12-78); ANION GAP 8 MEQ/L (8-16); AST/SGOT 18 U/L (7-37); BILIRUBIN,TOTAL 0.7 MG/DL (0.2-1.0); BLOOD UREA NITROGEN 14 MG/DL (7-18); CARBON DIOXIDE LEVEL 31 MEQ/L (21-32); CHLORIDE LEVEL 100 MEQ/L (98-107); CREATININE FOR GFR 0.89 MG/DL (0.70-1.30); GLOMERULAR FILTRATION RATE > 60.0 (>49); GLUCOSE, FASTING 92 MG/DL (80-110); POTASSIUM SERUM 3.9 MEQ/L (3.5-5.1); SODIUM LEVEL 139 MEQ/L (136-145); TOTAL PROTEIN 8.1 GM/DL (6.4-8.2)
[2017-09-22] MEDS: METOPROLOL SUCC (TopROL XL) 50MG **XL** TAB PO (12:06)
[2017-09-22] MEDS: ONDANSETRON 4MG/2ML VIAL (J2405) IV (12:06)
[2017-09-22] MEDS: MORPHINE 2 MG/ML 1ML SYRINGE IV ×2 (12:07→16:14)
[2017-09-22] MEDS: METOCLOPRAMIDE INJ 10MG/2ML VIAL (J2765) IV (13:17)
[2017-09-22] MEDS: diphenhydrAMINE INJ 50MG/ML VIAL (J1200) IV (13:17)
[2017-09-22 16:55] LABS: ERYTHROCYTE SEDIMENTATION RATE 26 mm/hr (0-20)
[2017-09-22] MEDS: LORazepam 2 MG/ML VIAL (J2060) IV (18:00)
== END 2017-09-22 21:10 | disposition home or self-care (01) ==
LOC: M ED 10:24
DX: I10 Essential (primary) hypertension (principal); R51 Headache; Z79.82 Long term (current) use of aspirin; Z79.899 Other long term (current) drug therapy; Z88.0 Allergy status to penicillin
CPT/HCPCS: 96374

== ENCOUNTER 2017-09-24 12:51 | Emergency (ER) | payer MEDICARE, MEDICAID ==
[2017-09-24] MEDS: hydroCHLOROthiazide 25 MG TAB PO (15:16)
[2017-09-24] MEDS: METOPROLOL TART 50 MG TAB PO (16:40)
[2017-09-24] MEDS: ACETAMINOPHEN TAB 650MG DOSE (2X325MG) PO (18:50)
[2017-09-24] MEDS: ONDANSETRON 4MG/2ML VIAL (J2405) IV (18:51)
[2017-09-24] MEDS: hydrALAZINE INJ 20 MG/ML VIAL IV (18:51)
[2017-09-24] MEDS: diphenhydrAMINE INJ 50MG/ML VIAL (J1200) IV (19:14)
[2017-09-24] MEDS: NS 1,000 ML IV (19:15)
[2017-09-24] MEDS: METOCLOPRAMIDE INJ 10MG/2ML VIAL (J2765) IV (19:30)
[2017-09-24 19:46] LABS: BASO # 0.1 10^3/uL (0.0-0.2); BASO % 0.5 % (0.0-1.0); EOS # 0.1 10^3/uL (0.0-0.50); EOS % 1.1 % (0.0-3.0); HEMATOCRIT 41.5 % (42.0-52.0); HEMOGLOBIN 14.8 g/dl (14.0-18.0); IMMATURE GRANULOCYTE % 0.2 % (0-0); LYMPH # 1.7 10^3/uL (1.5-4.5); LYMPH % 18.2 % (24.0-44.0); MEAN CORPUSCULAR HEMOGLOBIN 30.5 pg (27.0-33.0); MEAN CORPUSCULAR HGB CONC 35.7 g/dl (32.0-36.5); MEAN CORPUSCULAR VOLUME 85.4 fl (80.0-96.0); MONO # 0.8 10^3/uL (0.0-0.8); MONO % 8.9 % (0.0-5.0); NEUTROPHILS # 6.6 10^3/uL (1.8-7.7); NEUTROPHILS % 71.1 % (36.0-66.0); PLATELET COUNT, AUTOMATED 236 10^3/uL (150-450); RED BLOOD COUNT 4.86 10^6/uL (4.30-6.10); RED CELL DISTRIBUTION WIDTH 11.7 % (11.5-14.5); WHITE BLOOD COUNT 9.3 10^3/uL (4.0-10.0)
[2017-09-24 20:07] LABS: ANION GAP 9 MEQ/L (8-16); BLOOD UREA NITROGEN 17 MG/DL (7-18); CALCIUM LEVEL 8.9 MG/DL (8.8-10.2); CARBON DIOXIDE LEVEL 29 MEQ/L (21-32); CHLORIDE LEVEL 100 MEQ/L (98-107); CREATININE FOR GFR 1.02 MG/DL (0.70-1.30); GLOMERULAR FILTRATION RATE > 60.0 (>49); GLUCOSE, FASTING 108 MG/DL (80-110); POTASSIUM SERUM 3.9 MEQ/L (3.5-5.1); SODIUM LEVEL 138 MEQ/L (136-145)
[2017-09-24] MEDS: MAG SULF 1GM/100ML (MAG RUN) 1 GM in APPROPRIATE DILUENT 1 EA IV (20:15)
[2017-09-24] MEDS ORDERED: ISOVUE-370 76% 100ML VIAL (Q9967) As Ordered (20:23)
== END 2017-09-24 21:56 | disposition home or self-care (01) ==
LOC: M ED 12:51
DX: I10 Essential (primary) hypertension (principal); R51 Headache; G89.29 Other chronic pain; M54.9 Dorsalgia, unspecified; Z85.828 Personal history of other malignant neoplasm of skin; Z79.82 Long term (current) use of aspirin; Z79.899 Other long term (current) drug therapy; Z88.0 Allergy status to penicillin
CPT/HCPCS: 96374

== ENCOUNTER 2017-09-25 17:23 | Inpatient (IN) | payer MEDICARE, MEDICAID ==
[2017-09-25] MEDS: LABETALOL HCL 100 MG/20 ML VIAL IV (19:45)
[2017-09-25] MEDS: ONDANSETRON 4MG/2ML VIAL (J2405) IV (19:45)
[2017-09-25 20:13] LABS: BASO # 0.1 10^3/uL (0.0-0.2); BASO % 0.8 % (0.0-1.0); EOS # 0.1 10^3/uL (0.0-0.50); EOS % 1.6 % (0.0-3.0); HEMATOCRIT 39.2 % (42.0-52.0); HEMOGLOBIN 13.8 g/dl (14.0-18.0); IMMATURE GRANULOCYTE % 0.3 % (0-0); LYMPH # 1.8 10^3/uL (1.5-4.5); LYMPH % 20.8 % (24.0-44.0); MEAN CORPUSCULAR HEMOGLOBIN 30.6 pg (27.0-33.0); MEAN CORPUSCULAR HGB CONC 35.2 g/dl (32.0-36.5); MEAN CORPUSCULAR VOLUME 86.9 fl (80.0-96.0); MONO # 0.9 10^3/uL (0.0-0.8); MONO % 10.4 % (0.0-5.0); NEUTROPHILS # 5.7 10^3/uL (1.8-7.7); NEUTROPHILS % 66.1 % (36.0-66.0); PLATELET COUNT, AUTOMATED 245 10^3/uL (150-450); RED BLOOD COUNT 4.51 10^6/uL (4.30-6.10); RED CELL DISTRIBUTION WIDTH 11.9 % (11.5-14.5); WHITE BLOOD COUNT 8.7 10^3/uL (4.0-10.0)
[2017-09-25 20:38] LABS: ANION GAP 7 MEQ/L (8-16); BLOOD UREA NITROGEN 17 MG/DL (7-18); CALCIUM LEVEL 8.4 MG/DL (8.8-10.2); CARBON DIOXIDE LEVEL 31 MEQ/L (21-32); CHLORIDE LEVEL 101 MEQ/L (98-107); CPK CREATINE PHOSPHOKINASE 79 U/L (39-308); CREATININE FOR GFR 0.89 MG/DL (0.70-1.30); GLOMERULAR FILTRATION RATE > 60.0 (>49); GLUCOSE, FASTING 98 MG/DL (80-110); MB/CK RELATIVE INDEX 1.26 (< OR =4); SODIUM LEVEL 139 MEQ/L (136-145); TROPONIN I < 0.02 NG/ML (< 0.10)
[2017-09-25] MEDS: KETOROLAC 30 MG/ML VIAL (J1885) IV (21:06)
[2017-09-25] MEDS: LABETALOL 100 MG TAB PO ×2 (21:06→23:00)
[2017-09-26] MEDS: SIMVASTATIN 40 MG TAB PO (00:09)
[2017-09-26] MEDS: LABETALOL 100 MG TAB PO ×14 (01:00→13:00)
[2017-09-26] MEDS: ACETAMINOPHEN TAB 650MG DOSE (2X325MG) PO ×4 (05:56→23:22)
[2017-09-26 06:06] LABS: HEMATOCRIT 37.8 % (42.0-52.0); HEMOGLOBIN 13.1 g/dl (14.0-18.0); MEAN CORPUSCULAR HEMOGLOBIN 30.4 pg (27.0-33.0); MEAN CORPUSCULAR HGB CONC 34.7 g/dl (32.0-36.5); MEAN CORPUSCULAR VOLUME 87.7 fl (80.0-96.0); PLATELET COUNT, AUTOMATED 213 10^3/uL (150-450); RED BLOOD COUNT 4.31 10^6/uL (4.30-6.10); RED CELL DISTRIBUTION WIDTH 11.9 % (11.5-14.5); WHITE BLOOD COUNT 9.8 10^3/uL (4.0-10.0)
[2017-09-26 06:28] LABS: ANION GAP 7 MEQ/L (8-16); BLOOD UREA NITROGEN 20 MG/DL (7-18); CALCIUM LEVEL 8.5 MG/DL (8.8-10.2); CARBON DIOXIDE LEVEL 32 MEQ/L (21-32); CHLORIDE LEVEL 100 MEQ/L (98-107); CREATININE FOR GFR 1.04 MG/DL (0.70-1.30); GLOMERULAR FILTRATION RATE > 60.0 (>49); GLUCOSE, FASTING 88 MG/DL (80-110); POTASSIUM SERUM 3.8 MEQ/L (3.5-5.1); SODIUM LEVEL 139 MEQ/L (136-145)
[2017-09-26] MEDS: MULTIVITAMINS/MINERALS THERAP 1 TAB PO (10:42)
[2017-09-26] MEDS: ASPIRIN 81 MG ENTERIC TAB PO (10:42)
[2017-09-26] MEDS: METOPROLOL SUCC (TopROL XL) 50MG **XL** TAB PO (11:25)
[2017-09-26] MEDS: ONDANSETRON 4MG/2ML VIAL (J2405) IV (13:49)
[2017-09-26] MEDS: ENOXAPARIN 40 MG/0.4 ML SYRINGE (J1650) SC (13:49)
[2017-09-26] MEDS: amLODIPine 5 MG TAB PO ×2 (13:50→20:39)
[2017-09-26 14:07] LABS: MAGNESIUM LEVEL 2.2 MG/DL (1.8-2.4)
[2017-09-26] MEDS ORDERED: hydrALAZINE INJ 20 MG/ML VIAL IV (16:30)
[2017-09-26] MEDS: METOPROLOL TART 25 MG TABLET PO ×2 (17:11→23:22)
[2017-09-26] MEDS: SIMVASTATIN 20 MG TAB PO (20:39)
[2017-09-27] MEDS: ACETAMINOPHEN TAB 650MG DOSE (2X325MG) PO ×3 (04:11→18:42)
[2017-09-27 05:43] LABS: HEMATOCRIT 37.8 % (42.0-52.0); HEMOGLOBIN 13.1 g/dl (14.0-18.0); MEAN CORPUSCULAR HEMOGLOBIN 30.4 pg (27.0-33.0); MEAN CORPUSCULAR HGB CONC 34.7 g/dl (32.0-36.5); MEAN CORPUSCULAR VOLUME 87.7 fl (80.0-96.0); PLATELET COUNT, AUTOMATED 208 10^3/uL (150-450); RED BLOOD COUNT 4.31 10^6/uL (4.30-6.10); RED CELL DISTRIBUTION WIDTH 11.8 % (11.5-14.5); WHITE BLOOD COUNT 8.7 10^3/uL (4.0-10.0)
[2017-09-27] MEDS: SLF 3 ML SYR IV ×4 (06:02→20:42)
[2017-09-27] MEDS: METOPROLOL TART 25 MG TABLET PO ×4 (06:02→23:54)
[2017-09-27 06:04] LABS: ANION GAP 8 MEQ/L (8-16); BLOOD UREA NITROGEN 17 MG/DL (7-18); CALCIUM LEVEL 8.4 MG/DL (8.8-10.2); CARBON DIOXIDE LEVEL 29 MEQ/L (21-32); CHLORIDE LEVEL 103 MEQ/L (98-107); CREATININE FOR GFR 0.87 MG/DL (0.70-1.30); GLOMERULAR FILTRATION RATE > 60.0 (>49); GLUCOSE, FASTING 99 MG/DL (80-110); POTASSIUM SERUM 3.8 MEQ/L (3.5-5.1); SODIUM LEVEL 140 MEQ/L (136-145)
[2017-09-27] MEDS: ONDANSETRON 4MG/2ML VIAL (J2405) IV ×2 (07:48→20:12)
[2017-09-27] MEDS: ENOXAPARIN 40 MG/0.4 ML SYRINGE (J1650) SC (08:20)
[2017-09-27] MEDS: amLODIPine 5 MG TAB PO ×2 (08:21→20:13)
[2017-09-27] MEDS: MULTIVITAMINS/MINERALS THERAP 1 TAB PO (08:21)
[2017-09-27] MEDS: ASPIRIN 81 MG ENTERIC TAB PO (08:21)
[2017-09-27] MEDS: LISINOPRIL 10 MG TAB PO ×2 (09:52→20:13)
[2017-09-27] MEDS: SIMVASTATIN 20 MG TAB PO (20:13)
[2017-09-28] MEDS: METOPROLOL TART 25 MG TABLET PO (05:28)
[2017-09-28] MEDS: SLF 3 ML SYR IV (05:29)
[2017-09-28] MEDS: ACETAMINOPHEN TAB 650MG DOSE (2X325MG) PO (07:36)
[2017-09-28 08:01] LABS: HEMATOCRIT 36.2 % (42.0-52.0); HEMOGLOBIN 12.7 g/dl (14.0-18.0); MEAN CORPUSCULAR HEMOGLOBIN 31.1 pg (27.0-33.0); MEAN CORPUSCULAR HGB CONC 35.1 g/dl (32.0-36.5); MEAN CORPUSCULAR VOLUME 88.5 fl (80.0-96.0); PLATELET COUNT, AUTOMATED 190 10^3/uL (150-450); RED BLOOD COUNT 4.09 10^6/uL (4.30-6.10); RED CELL DISTRIBUTION WIDTH 12.1 % (11.5-14.5); WHITE BLOOD COUNT 7.1 10^3/uL (4.0-10.0)
[2017-09-28] MEDS: ENOXAPARIN 40 MG/0.4 ML SYRINGE (J1650) SC (08:14)
[2017-09-28] MEDS: amLODIPine 5 MG TAB PO (08:14)
[2017-09-28] MEDS: MULTIVITAMINS/MINERALS THERAP 1 TAB PO (08:15)
[2017-09-28] MEDS: ASPIRIN 81 MG ENTERIC TAB PO (08:15)
[2017-09-28 08:30] LABS: ANION GAP 7 MEQ/L (8-16); BLOOD UREA NITROGEN 19 MG/DL (7-18); CALCIUM LEVEL 8.4 MG/DL (8.8-10.2); CARBON DIOXIDE LEVEL 28 MEQ/L (21-32); CHLORIDE LEVEL 102 MEQ/L (98-107); CREATININE FOR GFR 1.54 MG/DL (0.70-1.30); GLOMERULAR FILTRATION RATE 47.9 (>49); GLUCOSE, FASTING 117 MG/DL (80-110); SODIUM LEVEL 137 MEQ/L (136-145)
== END 2017-09-28 11:23 | disposition home or self-care (01) | DRG 305 ==
LOC: M PCU 09-26 17:03 → M ED 17:23 → M ED INP 23:00 → M ICU 23:58
DX: I16.0 Hypertensive urgency (principal); J21.0 Acute bronchiolitis due to respiratory syncytial virus; Z88.1 Allergy status to other antibiotic agents; E78.5 Hyperlipidemia, unspecified; J30.2 Other seasonal allergic rhinitis; I10 Essential (primary) hypertension; Z79.899 Other long term (current) drug therapy

== ENCOUNTER → 2017-09-30 | Outpatient (CLI) | payer MEDICARE, MEDICAID ==
[2017-09-30 11:04] LABS: ANION GAP 5 MEQ/L (8-16); BLOOD UREA NITROGEN 17 MG/DL (7-18); CALCIUM LEVEL 8.5 MG/DL (8.8-10.2); CARBON DIOXIDE LEVEL 34 MEQ/L (21-32); CHLORIDE LEVEL 98 MEQ/L (98-107); CREATININE FOR GFR 0.96 MG/DL (0.70-1.30); GLOMERULAR FILTRATION RATE > 60.0 (>49); GLUCOSE, FASTING 101 MG/DL (80-110); POTASSIUM SERUM 4.5 MEQ/L (3.5-5.1); SODIUM LEVEL 137 MEQ/L (136-145)
== END ==
LOC: M LAB 10:19
DX: E86.0 Dehydration (principal); N17.9 Acute kidney failure, unspecified
CPT/HCPCS: 80048

== ENCOUNTER → 2018-01-26 | Outpatient (CLI) | payer MEDICARE, MEDICAID ==
[2018-01-26 11:09] LABS: ALBUMIN 3.9 GM/DL (3.2-5.2); ANION GAP 4 MEQ/L (8-16); BLOOD UREA NITROGEN 24 MG/DL (7-18); CALCIUM LEVEL 8.5 MG/DL (8.8-10.2); CARBON DIOXIDE LEVEL 31 MEQ/L (21-32); CHLORIDE LEVEL 104 MEQ/L (98-107); CREATININE FOR GFR 1.25 MG/DL (0.70-1.30); GLOMERULAR FILTRATION RATE > 60.0 (>49); GLUCOSE, FASTING 82 MG/DL (70-100); MAGNESIUM LEVEL 2.4 MG/DL (1.8-2.4); PHOSPHORUS LEVEL 3.2 MG/DL (2.5-4.9); POTASSIUM SERUM 4.1 MEQ/L (3.5-5.1); SODIUM LEVEL 139 MEQ/L (136-145)
== END ==
LOC: M LAB 10:16
DX: I11.9 Hypertensive heart disease without heart failure (principal)
CPT/HCPCS: 83735

== ENCOUNTER 2018-02-12 11:09 | Day surgery (SDC) | payer MEDICARE, MEDICAID ==
[~2018-02-12 11:09] MED LIST: PROPOFOL 200 MG/20 ML VIAL As Ordered
[2018-02-12] MEDS: NS 1,000 ML IV (11:30)
== END 2018-02-12 13:00 | disposition home or self-care (01) ==
LOC: M OPP 11:09
DX: Z12.11 Encounter for screening for malignant neoplasm of colon (principal); K62.89 Other specified diseases of anus and rectum; K64.0 First degree hemorrhoids; K57.30 Diverticulosis of large intestine without perforation or abscess without bleeding; I10 Essential (primary) hypertension; E78.5 Hyperlipidemia, unspecified; K59.00 Constipation, unspecified; M19.90 Unspecified osteoarthritis, unspecified site; R06.83 Snoring; Z85.828 Personal history of other malignant neoplasm of skin; Z88.0 Allergy status to penicillin; Z88.3 Allergy status to other anti-infective agents; Z79.82 Long term (current) use of aspirin; Z79.899 Other long term (current) drug therapy; Z80.42 Family history of malignant neoplasm of prostate
CPT/HCPCS: 45380

== ENCOUNTER → 2018-05-21 | Outpatient (REF) | payer MEDICARE, MEDICAID | LOC: M SMT 13:03 | DX: R97.20 Elevated prostate specific antigen [PSA] (principal); Z79.899 Other long term (current) drug therapy | CPT/HCPCS: 87086 ==

== ENCOUNTER → 2018-06-05 | Outpatient (CLI) | payer MEDICARE | LOC: M SMT PRO 08:57 | DX: C61 Malignant neoplasm of prostate (principal) | CPT/HCPCS: G0416 ==

== ENCOUNTER → 2018-06-13 | Outpatient (REF) | payer MEDICARE, MEDICAID ==
[2018-06-13 19:55] LABS: APPEARANCE, URINE CLEAR (CLEAR); BACTERIA, URINE AUTO NEGATIVE (NEGATIVE); BILIRUBIN, URINE AUTO NEGATIVE (NEGATIVE); BLOOD, URINE BLOOD 2+ (NEGATIVE); COLOR, URINE STRAW (YELLOW); GLUCOSE, URINE (UA) AUTO NEGATIVE (NEGATIVE); KETONE, URINE AUTO NEGATIVE (NEGATIVE); LEUKOCYTE ESTERASE, URINE AUTO NEGATIVE (NEGATIVE); NITRITE, URINE AUTO NEGATIVE (NEGATIVE); PROTEIN, URINE AUTO NEGATIVE (NEGATIVE); RBC, URINE AUTO 1 /HPF (0-3); SPECIFIC GRAVITY URINE AUTO 1.006 (1.002-1.035); SQUAMOUS EPITHELIAL CELL UR AU 0 /HPF (0-6); UROBILINOGEN, URINE AUTO 0.2 mg/dL (0.0-2.0); WBC, URINE AUTO 2 /HPF (0-3)
== END ==
LOC: M LAB REF 17:31
DX: N39.0 Urinary tract infection, site not specified (principal)
CPT/HCPCS: 81001

== ENCOUNTER → 2018-07-12 | Outpatient (CLI) | payer MEDICARE, MEDICAID | LOC: M ONCR 08:41 | DX: C61 Malignant neoplasm of prostate (principal) | CPT/HCPCS: G0463 ==

== ENCOUNTER → 2018-08-07 | Outpatient (CLI) | payer MEDICARE, MEDICAID | LOC: M SMT 08:17 | DX: C61 Malignant neoplasm of prostate (principal) | CPT/HCPCS: 76872; 96402 ==

== ENCOUNTER 2018-08-23 10:58 | Outpatient (RCR) | payer MEDICARE, MEDICAID ==
[2018-08-23 11:55] LABS: HEMATOCRIT 38.3 % (42.0-52.0); HEMOGLOBIN 13.5 g/dl (13.5-17.5); MEAN CORPUSCULAR HGB CONC 35.2 g/dl (32.0-36.5); PLATELET COUNT, AUTOMATED 207 10^3/uL (150-450); RED BLOOD COUNT 4.35 10^6/uL (4.30-6.10); RED CELL DISTRIBUTION WIDTH 11.7 % (11.5-14.5); WHITE BLOOD COUNT 7.1 10^3/uL (4.0-10.0)
== END 2018-08-24 ==
LOC: M ONCR 10:58
DX: C61 Malignant neoplasm of prostate (principal)
CPT/HCPCS: 77334

== ENCOUNTER → 2018-09-24 | Outpatient (RCR) | payer MEDICARE, MEDICAID ==
--- NOTE | 2018-09-04 11:19 | RADONC ---
RADIATION ONCOLOGY PROGRESS NOTE DATE OF SERVICE: 09/03/2018 CHART NUMBER: [id number] PROGRESS NOTE: Mr. Burger was underwent his first fraction of radiation today to his prostate for a total of 180 cGy. The patient tolerated his first fraction well. REVIEW OF SYSTEMS: The patient's review of systems is noncontributory. He denies nausea, vomiting, fevers, chills, night sweats, diplopia, headaches, anxiety or depression, anorexia, weight loss, visual disturbances, chest pain, urinary or bowel difficulties, bone pain, or neurological problems. PHYSICAL EXAM: The patient's skin clearly showed no evidence of radiation change present. The remainder of his physical exam also remained unchanged. Mr. Burger tolerated his first fraction of radiation well, and radiation will continue as scheduled.
--- NOTE | 2018-09-10 15:23 | RADONC ---
RADIATION ONCOLOGY PROGRESS NOTE DATE: 08/11/2018 CHART NUMBER: [id number] PROGRESS NOTE Mr. Burger is presently at a dose of 1080 centigrade to his prostate and is tolerating treatments quite well at this point with no complaints related to his radiation therapy. He is having no urinary or bowel difficulties and no bone pain. REVIEW OF SYSTEMS: The patient's review of systems is noncontributory. Denies nausea, vomiting, fevers, chills, night sweats, diplopia, headaches, anxiety or depression, anorexia, weight loss, visual disturbances, chest pain, urinary or bowel difficulties, bone pain, or neurological problems. PHYSICAL EXAMINATION: The patient's skin is in good condition with no evidence of radiation change present. There is no moist or dry desquamation. The remainder of his physical exam remains unchanged. Mr. Burger is tolerating treatments quite well and radiation will continue as scheduled.
--- NOTE | 2018-09-21 10:09 | RADONC ---
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 Treatments are going well as he denies any nausea, vomiting, diarrhea, dysuria, hematuria, or blood per rectum. REVIEW OF SYSTEMS: Remainder of the review of systems is noncontributory. IMPRESSION: Tolerating therapy well. PLAN: Treatments to continue. MTDD
[~2018-09-24] MED LIST changes: +AMLO5TAB4 PO; +ASPI1TAB PO; +ASPI81TAEC PO; +ATOR40TA75 PO; +CHLO125TA PO; +FLON1SPR; +IBUPOTC PO; +LISI-542 PO; +LORA10CA PO; +LOSA50TA73 PO; +METO1TAB33 PO; +METO1TAB7 PO; +MULT1TAB28 PO; -PROPOFOL 200 MG/20 ML VIAL As Ordered; +SIMV20TA2 PO; +SIMV40TA2 PO; +VITMTA PO
--- NOTE | 2018-09-26 14:17 | RADONC ---
RADIATION ONCOLOGY PROGRESS NOTE DATE: 09/24/2018 CHART NUMBER: [id number] PROGRESS NOTE: Mr. Burger is presently at a dose of 2340 cGy to his prostate and is tolerating treatments quite well at this point with no significant difficulties related to his radiation therapy. He is having no significant urinary or bowel difficulties. REVIEW OF SYSTEMS: The patient's review of systems is largely noncontributory. Denies nausea, vomiting, fevers, chills, night sweats, diplopia, headaches, anxiety or depression, anorexia, weight loss, visual disturbances, chest pain, urinary or bowel difficulties, bone pain, or neurological problems. PHYSICAL EXAMINATION: The patient's skin is in good condition with no evidence of moist or dry desquamation. The remainder of his physical exam remains unchanged. Mr. Burger is tolerating treatments quite well and radiation will continue as scheduled.
== END ==
LOC: M ONCR 08-29 14:54
PROVIDERS: ATTEND Radiology Radiation Oncology
DX: C61 Malignant neoplasm of prostate (principal)

== ENCOUNTER → 2018-10-25 | Outpatient (RCR) | payer OTHER, MEDICARE, MEDICAID ==
--- NOTE | 2018-10-08 15:16 | RADONC ---
RADIATION ONCOLOGY PROGRESS NOTE: DATE: 10/08/2018 CHART NUMBER: [id number] Mr. Burger is presently at a dose of 3780 cGy to his prostate and is tolerating treatments quite well at this point with no complaints related to his radiation therapy. He is having no urinary or bowel difficulties and no bone pain. REVIEW OF SYSTEMS: The patient's review of systems is noncontributory. He denies nausea, vomiting, fevers, chills, night sweats, diplopia, headaches, anxiety or depression, anorexia, weight loss, visual disturbances, chest pain, urinary or bowel difficulties, bone pain, or neurological problems. PHYSICAL EXAMINATION: The patient's skin is in good condition with no evidence of moist or dry desquamation. The remainder of his physical exam remains unchanged. Mr. Burger is tolerating treatments quite well and radiation will continue as scheduled.
--- NOTE | 2018-10-16 10:48 | RADONC ---
RADIATION ONCOLOGY PROGRESS NOTE DATE: 10/15/2018 CHART NUMBER: [id number] PROGRESS NOTE: Mr. Burger is presently at a dose of 4680 cGy to his prostate and is tolerating treatments quite well at this point with no complaints related to his radiation therapy. He is having no urinary or bowel difficulties. No bone pain. REVIEW OF SYSTEMS: The patient's review of systems is noncontributory. Denies nausea, vomiting, fevers, chills, night sweats, diplopia, headaches, anxiety or depression, anorexia, weight loss, visual disturbances, chest pain, urinary or bowel difficulties, bone pain, or neurological problems. PHYSICAL EXAMINATION: The patient's skin is in good condition with no evidence of moist or dry desquamation. The remainder of his physical exam remains unchanged. Mr. Burger is tolerating treatments quite well and radiation will continue as scheduled.
--- NOTE | 2018-10-22 11:28 | RADONC ---
RADIATION ONCOLOGY PROGRESS NOTE DATE OF SERVICE: 10/22/2018 CHART #: [id number] Mr. Burger is presently at a dose of 5400 cGy to his prostate and is tolerating treatments quite well at this point with no complaints related to his radiation therapy. He is having no urinary or bowel difficulties and no bone pain. REVIEW OF SYSTEMS: The patient's review of systems is noncontributory. Denies nausea, vomiting, fevers, chills, night sweats, diplopia, headaches, anxiety or depression, anorexia, weight loss, visual disturbances, chest pain, urinary or bowel difficulties, bone pain, or neurological problems. PHYSICAL EXAMINATION: The patient's skin is in good condition with no evidence of radiation change present. There is no moist or dry desquamation. The remainder of his physical exam remains unchanged. Mr. Burger is tolerating treatments quite well and radiation will continue as scheduled.
[~2018-10-25] MED LIST changes: -AMLO5TAB4 PO; +AMLO5TAB6 PO; -LOSA50TA73 PO; +LOSA50TA88 PO
== END ==
LOC: M ONCR 09-26 07:29
PROVIDERS: ATTEND Radiology Radiation Oncology
DX: C61 Malignant neoplasm of prostate (principal)

== ENCOUNTER 2018-11-14 08:09 | Outpatient (RCR) | payer MEDICARE, MEDICAID ==
--- NOTE | 2018-10-29 16:27 | RADONC ---
RADIATION ONCOLOGY PROGRESS NOTE DATE: 10/29/2018 CHART NUMBER: [id number] PROGRESS NOTE: Mr. Burger is presently at a dose of 5940 cGy to his prostate and is tolerating treatments quite well at this point with no complaints related to his radiation therapy. He is having no urinary or bowel difficulties. No bone pain. REVIEW OF SYSTEMS: The patient's review of systems is noncontributory. Denies nausea, vomiting, fevers, chills, night sweats, diplopia, headaches, anxiety or depression, anorexia, weight loss, visual disturbances, chest pain, urinary or bowel difficulties, bone pain, or neurological problems. PHYSICAL EXAMINATION: The patient's skin is in good condition with no evidence of radiation change present. There is no moist or dry desquamation. The remainder of his physical exam remains unchanged. Mr. Burger is tolerating treatments quite well and radiation will continue as scheduled.
--- NOTE | 2018-11-13 19:05 | RADONC ---
RADIATION ONCOLOGY PROGRESS NOTE DATE OF SERVICE: 11/12/2018 CHART NUMBER: [id number]. PROGRESS NOTE: Mr. Burger with a diagnosis of adenocarcinoma of the prostate is currently receiving local regional radiotherapy, and he is at a dose of 7560 cGy of an anticipated 7920 cGy. He has only two more treatments to complete his entire prescribed dose of radiotherapy. REVIEW OF SYSTEMS: He denies any nausea, vomiting, diarrhea, dysuria, hematuria, or blood per rectum. He also denies fevers, chills, night sweats, diplopia, headaches, anxiety, or depression, weight loss, visual disturbances, chest pain, or bone pain. EXAMINATION FINDINGS: The skin within the irradiated volume shows neither erythema nor desquamation. Lymphatics: No palpable adenopathy is appreciated. The remainder of the physical examination is unchanged. IMPRESSION: Tolerating therapy well. PLAN: Treatments to continue.
--- NOTE | 2018-11-15 10:52 | RADONC ---
RADIATION ONCOLOGY TREATMENT SUMMARY DATE: 11/14/2018 CHART NUMBER: [id number] DIAGNOSIS: Prostate cancer. STAGE: IIB, U8cCaSz, Deangelo score 7 (3+4), grade group 2, PSA 7.1. PLAN OF RADIOTHERAPY: Definitive. The radiotherapy started 09/03/2018, completed 11/14/2018. DOSE: The patient received a total of 7920 cGy, administered in 44 fractions over 77 elapsed days via IMRT/IGRT. Prior to treatment delivery localization was accomplished upon our CT simulator and treatment portals defined by the use of multiple leaf collimators. A 6 mV photon beam was employed for treatment delivery and reductions were made to the treatment volume after 5400 cGy. An additional 2520 cGy was added thereafter bringing the total dose to the aforementioned 7920 centigrade. STATUS OF TUMOR: There was no evidence of local regional recurrence clinically, nor was there clinical evidence of distant metastatic spread. TOLERANCE: In general, he tolerated his therapy quite well and had no significant local or generalized untoward side effects. DISPOSITION: Return to clinic in 1 month or p.r.n. and he was advised to return to his referring physicians as per their directions and instructions. Thank you for allowing us the opportunity of participation in the management of this patient. cc: MD Eb Enamorado MD
== END 2018-11-22 ==
LOC: M ONCR 08:09
PROVIDERS: ATTEND Radiology Radiation Oncology
DX: C61 Malignant neoplasm of prostate (principal)

== ENCOUNTER → 2018-12-10 | Outpatient (CLI) | payer MEDICARE, MEDICAID | LOC: M LAB 08:21 | PROVIDERS: ATTEND Radiology Radiation Oncology | DX: C61 Malignant neoplasm of prostate (principal) ==

== ENCOUNTER → 2018-12-12 | Outpatient (CLI) | payer MEDICARE, MEDICAID ==
--- NOTE | 2018-12-12 11:50 | RADONC ---
RADIATION ONCOLOGY FOLLOWUP NOTE DATE: 12/12/2018 CHART NUMBER: [id number] DIAGNOSIS: Prostate cancer. STAGE: II B, B5mUqWl, Deangelo score 7 (3-4) grade group II, PSA 7.1. ECOG PERFORMANCE STATUS: 0 FOLLOWUP NOTE: Mr. Burger is a very pleasant, 68-year-old white male with the diagnosis of a stage II B, B5uOoYv, moderate to poorly differentiated Deangelo score 7 (3-4) adenocarcinoma of prostate, who initially presented to us with his PSA level 7.1, who is now presenting for routine followup visit 1 month post completion of external beam radiation therapy. The patient presents today reporting he is doing quite well with no complaints at this time related to his radiation therapy or disease. He has no urinary bowel difficulties and no bone pain. REVIEW OF SYSTEMS: The patient's review of systems is noncontributory. Denies nausea, vomiting, fevers, chills, night sweats, diplopia, headaches, anxiety or depression, anorexia, weight loss, visual disturbances, chest pain, urinary or bowel difficulties, bone pain, or neurological problems. PHYSICAL EXAMINATION: The patient is a well-developed, well-nourished male in no acute distress. HEENT exam is normocephalic, atraumatic. Extraocular movements are intact. There is no palpable cervical, supraclavicular, infraclavicular, axillary, or inguinal lymphadenopathy present. Lungs are clear to auscultation and percussion. Heart has a regular rate and rhythm. Abdomen is benign with no hepatosplenomegaly, masses, or tenderness. Rectal examination reveals a normal anal sphincter tone. His prostate is smooth with no evidence of nodularity. Skeletal examination reveals no tenderness to pressure or percussion of the bony skeleton. Extremities reveal no clubbing, cyanosis, or edema. Neurologic exam is grossly intact, as is the remainder of the physical examination. ASSESSMENT: The patient is clinically FRANTZ at this time and will be seen by us again in 6 months for further followup. He will also continue to be followed by his other physicians as well. cc: MD Eb Enamorado MD
== END ==
LOC: M ONCR 08:54
PROVIDERS: ATTEND Radiology Radiation Oncology
DX: C61 Malignant neoplasm of prostate (principal)

== ENCOUNTER 2018-12-25 16:57 | Emergency (ER) | payer MEDICARE, MEDICAID ==
[~2018-12-25] VITALS: Ht 165.1 cm; Wt 78.4 kg
[~2018-12-25 16:57] MED LIST changes: -ASPI1TAB PO; +ASPI81TA26 PO
[2018-12-25] MEDS ORDERED: VITA100066 PO (17:09)
[2018-12-25] MEDS ORDERED: DULC5TAB PO (17:09)
[2018-12-25] MEDS ORDERED: COLA100C5 PO (17:09)
[2018-12-25 18:12] LABS: BASO % 0.8 % (0.0-1.0); EOS # 0.2 10^3/uL (0.0-0.50); HEMATOCRIT 37.2 % (42.0-52.0); HEMOGLOBIN 13.4 g/dl (13.5-17.5); LYMPH % 20.5 % (24.0-44.0); MEAN CORPUSCULAR HEMOGLOBIN 32.1 pg (27.0-33.0); MEAN CORPUSCULAR VOLUME 89.2 fl (80.0-96.0); MONO # 0.6 10^3/uL (0.0-0.8); MONO % 12.6 % (0.0-5.0); NEUTROPHILS # 3.1 10^3/uL (1.8-7.7); NEUTROPHILS % 63.1 % (36.0-66.0); PLATELET COUNT, AUTOMATED 202 10^3/uL (150-450); RED BLOOD COUNT 4.17 10^6/uL (4.30-6.10); WHITE BLOOD COUNT 4.9 10^3/uL (4.0-10.0)
[2018-12-25 18:26] LABS: APPEARANCE, URINE CLEAR (CLEAR); BACTERIA, URINE AUTO NEGATIVE (NEGATIVE); BILIRUBIN, URINE AUTO NEGATIVE (NEGATIVE); BLOOD, URINE BLOOD 1+ (NEGATIVE); COLOR, URINE YELLOW (YELLOW); GLUCOSE, URINE (UA) AUTO NEGATIVE (NEGATIVE); KETONE, URINE AUTO NEGATIVE (NEGATIVE); LEUKOCYTE ESTERASE, URINE AUTO NEGATIVE (NEGATIVE); NITRITE, URINE AUTO NEGATIVE (NEGATIVE); PROTEIN, URINE AUTO NEGATIVE (NEGATIVE); RBC, URINE AUTO 5 /HPF (0-3); SPECIFIC GRAVITY URINE AUTO 1.013 (1.002-1.035); SQUAMOUS EPITHELIAL CELL UR AU 0 /HPF (0-6); UROBILINOGEN, URINE AUTO 0.2 mg/dL (0.0-2.0); WBC, URINE AUTO 0 /HPF (0-3)
--- NOTE | 2018-12-25 18:26 | REP ---
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 Comparison: 10/15/2016 . Technique: PA and lateral. Findings: The mediastinum and cardiac silhouette are normal. The lung abraham are clear and without acute consolidation, effusion, or pneumothorax. The skeletal structures are intact and normal. Impression: 1. No acute cardiopulmonary process. Electronically Signed by Alexander Diaz MD 12/25/2018 06:18 P
[2018-12-25 18:40] LABS: BLOOD UREA NITROGEN 24 MG/DL (7-18); CALCIUM LEVEL 8.9 MG/DL (8.8-10.2); CARBON DIOXIDE LEVEL 31 MEQ/L (21-32); CHLORIDE LEVEL 105 MEQ/L (98-107); CPK CREATINE PHOSPHOKINASE 106 U/L (39-308); CREATININE FOR GFR 0.98 MG/DL (0.70-1.30); GLOMERULAR FILTRATION RATE > 60.0 (>42); GLUCOSE, FASTING 84 MG/DL (70-100); POTASSIUM SERUM 3.7 MEQ/L (3.5-5.1); SODIUM LEVEL 141 MEQ/L (136-145); TROPONIN I < 0.02 NG/ML (< 0.10)
[2018-12-25 18:47] LABS: VITAMIN B12 LEVEL 672 PG/ML (247-911)
[2018-12-25 19:09] VITALS: BP 139/64
--- NOTE | 2018-12-25 22:14 | ECGEPIP ---
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
== END 2018-12-25 19:39 | disposition home or self-care (01) ==
LOC: M ED 16:57
DX: G62.9 Polyneuropathy, unspecified (principal); I45.10 Unspecified right bundle-branch block; I10 Essential (primary) hypertension; M54.9 Dorsalgia, unspecified; Z85.46 Personal history of malignant neoplasm of prostate; Z79.82 Long term (current) use of aspirin; Z79.899 Other long term (current) drug therapy; Z88.0 Allergy status to penicillin

== ENCOUNTER → 2019-03-18 | Outpatient (CLI) | payer MEDICARE, MEDICAID ==
[~2019-03-18] MED LIST changes: +COLA100C5 PO; +DULC5TAB PO; +VITA100066 PO
== END ==
LOC: M SMT 09:34
PROVIDERS: ATTEND Urology
DX: C61 Malignant neoplasm of prostate (principal)

== ENCOUNTER → 2019-06-03 | Outpatient (CLI) | payer MEDICARE, MEDICAID | LOC: M LAB 08:09 | PROVIDERS: ATTEND Radiology Radiation Oncology | DX: C61 Malignant neoplasm of prostate (principal) ==

== ENCOUNTER → 2019-06-05 | Outpatient (CLI) | payer MEDICARE, MEDICAID ==
--- NOTE | 2019-06-05 09:48 | RADONC ---
RADIATION ONCOLOGY FOLLOWUP NOTE: DATE: 06/05/2019 CHART NUMBER: [id number] DIAGNOSIS: Prostate cancer. Stage : II B, T2b Nx Mx, [place] score 7 (3+ 4), grade group 2, PSA 7.1. ECOG PERFORMANCE STATUS: 0 Mr. Burger is a very pleasant 68-year-old man with a diagnosis of a stage II B, T2b Nx Mx moderately to poorly differentiated adenocarcinoma of the prostate, Deangelo score 7 (3+ 4). He presents today for followup visit after having completed a course of external beam radiotherapy on 11/14/2018. He tolerated his radium therapy reasonably well and his previous PSA was down to 0.03 ng/mL. It is now most recently down to 0.01 ng/mL. He denies any nausea, vomiting, diarrhea, dysuria, hematuria or blood per rectum. 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 EXAMINATION FINDINGS: The patient is a well-nourished male appropriate for stated age. HEENT: Normocephalic. EOMs intact. PERRLA. Fundi benign. LYMPHATICS: No palpable peripheral lymphadenopathy is appreciated. LUNGS: Lungs are clear. HEART: Regular without murmurs. ABDOMEN: Without evidence of hepatomegaly, masses, deep abdominal tenderness. EXTREMITIES: Without cyanosis, clubbing or edema. RECTAL EXAMINATION: The patient has requested a deferred rectal examination because his PSA was still low and he does not feel it is necessary. IMPRESSION: No clinical evidence of disease. PLAN: Would like him to return in approximately 1 year and he was asked to return to his referring physicians as per their directions and instructions. cc: MD Eb Enamorado MD
== END ==
LOC: M ONCR 08:58
PROVIDERS: ATTEND Radiology Radiation Oncology
DX: C61 Malignant neoplasm of prostate (principal)

== ENCOUNTER → 2019-08-27 | Outpatient (CLI) | payer MEDICARE, MEDICAID ==
[~2019-08-27] MED LIST changes: -SIMV20TA2 PO; +SIMV20TA22 PO; -SIMV40TA2 PO; +SIMV40TA20 PO
--- NOTE | 2019-08-27 09:57 | REP ---
Clinical: Abdominal pain. Technique: Axial noncontrast images from the lung bases to the pubic symphysis with coronal and sagittal re-formations. Comparison: 09/01/2010. Findings: Lung bases suggest mild pulmonary vascular congestion and correlation is recommended. Liver, spleen, pancreas, gallbladder, bilateral adrenal glands and kidneys are normal for noncontrast evaluation. The enteric system is without obstruction or acute inflammatory process. Colonic and sigmoid diverticulosis noted without acute diverticulitis. Pelvis suggests prior prostate intervention. Mild bladder wall thickening cannot be excluded and may be secondary to chronic outlet obstruction. No ascites. No free air. No adenopathy. Abdominal aorta without aneurysm. Musculoskeletal structures demonstrate age-related degenerative changes and chronic L5 spondylolysis with grade 1 spondylolisthesis. Impression: 1. No obvious acute abdominopelvic pathology appreciated. 2. Diverticulosis without acute diverticulitis. 3. Mild bladder wall thickening may be secondary to chronic outlet obstruction. Evidence for prior prostate intervention. 4. Chronic L5 spondylolysis with grade 1 spondylolisthesis. Electronically Signed by Alexander Diaz MD 08/27/2019 09:49 A
== END ==
LOC: M RAD 09:24
PROVIDERS: ATTEND Family Medicine
DX: R10.9 Unspecified abdominal pain (principal)

== ENCOUNTER 2020-03-21 08:54 | Emergency (ER) | payer MEDICARE, MEDICAID ==
[~2020-03-21] VITALS: Ht 167.6 cm; Wt 79.9 kg
[~2020-03-21 08:54] MED LIST changes: +AMLO1TAB24 PO; -AMLO5TAB6 PO
[2020-03-21] MEDS ORDERED: ISOVUE-370 76% 100ML VIAL As Ordered ONE (09:39)
[2020-03-21 09:49] LABS: BASO % 0.5 % (0.0-1.0); EOS # 0.1 10^3/uL (0.0-0.5); EOS % 2.1 % (0.0-3.0); HEMATOCRIT 37.9 % (42.0-52.0); LYMPH # 0.6 10^3/uL (1.5-5.0); LYMPH % 15.5 % (24.0-44.0); MEAN CORPUSCULAR HEMOGLOBIN 30.6 pg (27.0-33.0); MEAN CORPUSCULAR HGB CONC 34.3 g/dl (32.0-36.5); MEAN CORPUSCULAR VOLUME 89.2 fl (80.0-96.0); MONO # 0.5 10^3/uL (0.0-0.8); MONO % 13.4 % (0.0-5.0); NEUTROPHILS # 2.6 10^3/uL (1.5-8.5); NEUTROPHILS % 68.2 % (36.0-66.0); PLATELET COUNT, AUTOMATED 142 10^3/uL (150-450); RED BLOOD COUNT 4.25 10^6/uL (4.30-6.10); WHITE BLOOD COUNT 3.9 10^3/uL (4.0-10.0)
[2020-03-21 10:01] LABS: INR 1.07; PROTHROMBIN TIME 13.6 SECONDS (11.8-14.0)
[2020-03-21 10:02] LABS: PARTIAL THROMBOPLASTIN TIME 30.9 SECONDS (25.0-38.4)
[2020-03-21 10:07] LABS: ALBUMIN 3.6 GM/DL (3.2-5.2); BILIRUBIN,DIRECT 0.2 MG/DL (0.0-0.2); BILIRUBIN,TOTAL 0.5 MG/DL (0.2-1.0); TOTAL PROTEIN 6.9 GM/DL (6.4-8.2)
--- NOTE | 2020-03-21 10:09 | REP ---
Clinical: Acute abdominal pain. Technique: Axial contrast enhanced images from the lung bases to the pubic symphysis using 100 ml Isovue 370 intravenous contrast material with coronal and sagittal re-formations. Comparison: 08/27/2019, 09/08/2008 . Findings: Lung bases are clear. Visualized heart and pericardium normal. Liver, spleen, pancreas, gallbladder, bilateral adrenal glands and kidneys are essentially normal/stable. Few subcentimeter hepatic hypodensities again consistent with small benign hepatic cysts. Mild atrophic appearance to the left kidney again noted. The enteric system is without obstruction or acute inflammatory process. Scattered colonic and sigmoid diverticula noted without acute diverticulitis. Pelvis demonstrates normal bladder and evidence for prior prostate surgery. No ascites. No free air. No adenopathy. Abdominal aorta without aneurysm or dissection. Musculoskeletal structures demonstrate degenerative changes including chronic spondylolysis and spondylolisthesis at the L5-S1 level. Impression: 1. No obvious acute abdominopelvic pathology appreciated. 2. Colonic diverticulosis without acute diverticulitis. 3. Chronic spondylolysis and spondylolisthesis at the L5-S1 level is again noted. Electronically Signed by Alexander Diaz MD 03/21/2020 10:00 A
[2020-03-21 10:55] VITALS: BP 126/67
[2020-05-14] MEDS ORDERED: APPL300T4 PO (14:17)
== END 2020-03-21 11:03 | disposition home or self-care (01) ==
LOC: M ED 08:54
DX: D61.818 Other pancytopenia (principal); R19.5 Other fecal abnormalities; R10.84 Generalized abdominal pain; M43.17 Spondylolisthesis, lumbosacral region; I10 Essential (primary) hypertension; E78.5 Hyperlipidemia, unspecified; Z85.46 Personal history of malignant neoplasm of prostate; M54.9 Dorsalgia, unspecified; K57.30 Diverticulosis of large intestine without perforation or abscess without bleeding; Z79.82 Long term (current) use of aspirin; Z79.899 Other long term (current) drug therapy; Z88.0 Allergy status to penicillin
CPT/HCPCS: 36415; 74177; 80047; 80076; 81001; 83690; 85025; 85610; 85730; 99284; Q9967

== ENCOUNTER 2020-05-15 05:55 | Day surgery (SDC) | payer MEDICARE, MEDICAID ==
[~2020-05-15] VITALS: Ht 165.1 cm; Wt 79.3 kg
[~2020-05-15 05:55] MED LIST changes: +APPL300T4 PO
[2020-05-15] MEDS ORDERED: BUPIVACAINE/EPIN 0.25% 30 ML VIAL As Ordered ONE (07:17)
[2020-05-15] MEDS ORDERED: propofoL 200 MG/20 ML VIAL As Ordered ONE (07:18)
[2020-05-15] MEDS ORDERED: ROCURONIUM BROMIDE 50 MG/5 ML VIAL As Ordered ONE (07:18)
[2020-05-15] MEDS ORDERED: dexameTHASONE 4 MG/ML 1ML VIAL (J1100 PER 1MG) As Ordered ONE (07:18)
[2020-05-15] MEDS ORDERED: LIDOCAINE 2% 100MG/5ML SDV (FOR ANES.) As Ordered ONE (07:18)
[2020-05-15] MEDS ORDERED: MIDAZOLAM INJ 2MG/2ML VIAL (J2250 PER 1MG) As Ordered ONE (07:19)
[2020-05-15] MEDS ORDERED: fentaNYL 250 MCG/5 ML INJECTION (J3010) As Ordered ONE (07:19)
[2020-05-15] MEDS ORDERED: LR 1,000 ML IV ONE (07:30)
[2020-05-15] MEDS ORDERED: CLINDAMYCIN 600 MG in IV 1 EA IV ONE (07:30)
[2020-05-15] MEDS ORDERED: PHENYLephrine HCL 500 MCG/5 ML (100MCG/ML) SYRINGE (J2370) As Ordered ONE (07:53)
[2020-05-15] MEDS ORDERED: ePHEDrine SULFATE 25 MG/5 ML(5MG/ML) SYRINGE As Ordered ONE ×2 (07:53→09:51)
[2020-05-15] MEDS ORDERED: ACETAMINOPHEN 1000MG 100ML IV BTL (OFIRMEV) (J0131 PER 10MG) As Ordered ONE ×2 (08:16→10:08)
[2020-05-15] MEDS ORDERED: SUGAMMADEX SODIUM 500 MG/5 ML VIAL (BRIDION) As Ordered ONE ×2 (08:16→10:08)
[2020-05-15] MEDS ORDERED: ONDANSETRON 4MG/2ML VIAL As Ordered ONE (08:17)
[2020-05-15] MEDS ORDERED: HYDROmorphone HCL 2 MG/ML 1ML VIAL (J1170) As Ordered ONE ×2 (08:17→10:09)
[2020-05-15] MEDS ORDERED: KETOROLAC 60MG 2ML VIAL As Ordered ONE ×2 (08:23→10:07)
[2020-05-15] MEDS ORDERED: ONDANSETRON 4MG/2ML VIAL IV PRN (09:30)
[2020-05-15] MEDS ORDERED: NORCO, ANEXSIA 5/325MG TABLET (HYDROcodone/ACETAMINOPHEN) PO PRN (09:30)
[2020-05-15] MEDS ORDERED: oxyCODONE 5MG TAB PO PRN (09:30)
[2020-05-15] MEDS ORDERED: fentaNYL 100 MCG/2 ML INJECTION (J3010) IV PRN (09:30)
[2020-05-15] MEDS ORDERED: LR 1,000 ML IV SCH (09:30)
[2020-05-15 13:00] VITALS: BP 114/60
--- NOTE | 2020-07-02 12:55 | RO ---
DATE OF OPERATION: 05/15/2020. PREOPERATIVE DIAGNOSIS: Incarcerated right inguinal hernia. POSTOPERATIVE DIAGNOSIS: Incarcerated right inguinal hernia. PROCEDURE: Robotic right inguinal hernia repair. SURGEON: Christopher López DO OFFICE MANAGER: Corrina Vásquez ANESTHESIA: General. ESTIMATED BLOOD LOSS: 5. COMPLICATIONS: None. INDICATIONS FOR PROCEDURE: Patient is a 69-year-old male who presents with a large right inguinal hernia. Recommendation was to proceed with robotic repair. Risks and benefits of the procedure not limited to, but including bleeding, infection, hernia formation, damage to surrounding structures, hernia recurrence, and need for further surgery were discussed in detail with the patient. Informed consent was obtained and procedure was planned. PROCEDURE: The patient was brought back to operating room #7. After sufficient sedation, the abdomen was sterilely prepped and draped. Next, a time-out was done to confirm proper patient and proper procedure. Following that, an 8-mm incision was made in the left upper quadrant and Veress needle was inserted. The abdomen was insufflated to 15 mmHg. The Veress needle was then removed and an 8- mm Optiview port was used to gain access to the abdomen. Once the abdomen was entered, two more ports were placed; one superior to the umbilicus in the midline and one in the right upper quadrant. Next, the right lower quadrant was examined. There was small bowel extending down into a large indirect defect in the right groin. Once the robot was connected to the ports from the console, the small bowel was gently reduced. After it was reduced, a curved incision was made through the peritoneum to enter the preperitoneal space. The preperitoneal space was then dissected free medially and laterally all the way to the pubic symphysis. The hernia sac was then dissected free from all the cord structures using a combination of blunt and sharp dissection. Once that was completed and the hernia sac was completely reduced, the Bard 3DMax light and medium size mesh was placed into the right preperitoneal space and it was sutured to the pubic symphysis over the bone using 2-0 Vicryl suture. Mesh was then laid out over top of the cord structures covering the indirect defect. The peritoneum was then closed over top of the mesh using a running 2-0 V-Loc suture. Once that was completed, the abdomen was desufflated. Ports were removed. Skin incisions were closed with 4-0 Vicryl subcuticular sutures. The abdomen was clean and dried, 4 x 4s and tape were applied. DEVD
== END 2020-05-15 13:20 | disposition home or self-care (01) ==
LOC: M SDC 05:55
PROVIDERS: ATTEND Surgery
DX: K40.30 Unilateral inguinal hernia, with obstruction, without gangrene, not specified as recurrent (principal); I10 Essential (primary) hypertension; E78.5 Hyperlipidemia, unspecified; Z79.899 Other long term (current) drug therapy; Z79.82 Long term (current) use of aspirin; Z85.46 Personal history of malignant neoplasm of prostate; Z92.3 Personal history of irradiation; Z88.0 Allergy status to penicillin; Z88.1 Allergy status to other antibiotic agents
CPT/HCPCS: 49650; C1781; J0131; J1100; J1170; J1885; J2250; J2370; J2405; J3010

== ENCOUNTER → 2020-06-08 | Outpatient (CLI) | payer MEDICARE, MEDICAID | LOC: M LAB 07:18 | PROVIDERS: ATTEND Radiology Radiation Oncology | DX: C61 Malignant neoplasm of prostate (principal) ==

== ENCOUNTER → 2020-06-10 | Outpatient (CLI) | payer MEDICARE, MEDICAID | LOC: M ONCR 08:54 | PROVIDERS: ATTEND Radiology Radiation Oncology | DX: C61 Malignant neoplasm of prostate (principal) ==

== ENCOUNTER → 2020-07-15 | Outpatient (REF) | payer MEDICARE, MEDICAID | LOC: M PLALAB 08:39 | PROVIDERS: ATTEND Urology | DX: C61 Malignant neoplasm of prostate (principal) ==

== ENCOUNTER → 2020-12-07 | Outpatient (CLI) | payer MEDICARE, MEDICAID ==
[~2020-12-07] MED LIST changes: +ASPI-569 PO; -ASPI81TAEC PO; -LISI-542 PO; +LISI-898 PO
== END ==
LOC: M LAB 08:25
PROVIDERS: ATTEND Radiology Radiation Oncology
DX: C61 Malignant neoplasm of prostate (principal)

== ENCOUNTER → 2020-12-09 | Outpatient (CLI) | payer MEDICARE, MEDICAID ==
--- NOTE | 2020-12-09 13:23 | RADONC ---
Radiation Oncology Hx/FUP Radiation Oncology Hx/FUP Date of Service: Dec 09, 2020 Pt Identifier Anand Burger is a 70 year old male seen for a followup visit today at the department of radiation oncology for a history of favorable intermediate risk prostate cancer cT1c Deangelo 3+4=7 PSA 7.1. He is s/p EBRT 79.2 Gy in 44 fractions completed on 11/14/18. He had 6 months of ADT with this. Diagnosis/Treatment History Oncologic History Followed by Dr. Morrell for elevated PSA Biopsy on 06/05/18 with Deangelo 3+4=7 in 1 core and Deangelo 3+3=6 in 2 cores (3/12 cores+) Received ADT 6 month injection 07/26/18 PSA history: 05/17/18 7.1 12/10/18 0.03 03/18/19 <0.01 06/03/19 <0.01 06/08/20 0.15 07/15/20 0.14 12/07/20 0.18 Interval History Feels well. 1x nocturia, no issues with stream or emptying. No daytime frequency or urgency. No pain. No rectal bleeding. Had right chest tenderness, which led to a negative mammogram. Attributes the chest wall tenderness to muscle strain. Appetite good weight stable. Current Therapy Surveillance Stage Favorable intermediate risk prostate cancer cT1c [place] 3+4=7 (3/12 cores+) PSA 7.1 Social History: Non-smoker Non-drinker Allergies / Meds Allergies: Coded Allergies: amoxicillin (Verified Adverse Reaction, Intermediate, Cramps, 05/13/20) clavulanic acid (Verified Adverse Reaction, Intermediate, Cramps, 05/13/20) Home Meds Active Scripts Metoprolol Succinate (Metoprolol Succinate) 100 Mg Tab, 100 MG PO DAILY, #30 TAB Prov:GAY SOLIS MD 09/28/17 Reported Medications Cider Vinegar (Apple Cider Vinegar) 300 Mg Tablet, 300 MG PO DAILY, TAB 05/14/20 Docusate Sodium (Colace) 100 Mg Cap, 100 MG PO BID for 30 Days, #60 CAP 12/25/18 Chlorthalidone (Chlorthalidone) 12.5 Mg Halftab, 12.5 MG PO 3XW, HALFTAB Monday, Monday; and Monday01/29/18 Atorvastatin Calcium (Atorvastatin Calcium) 40 Mg Tab, 40 MG PO QPM, TAB 01/29/18 Losartan Potassium (Losartan Potassium) 50 Mg Tab, 50 MG PO DAILY, TAB 01/29/18 Ibuprofen (Ibuprofen) 200 Mg Tab, 400 MG PO Q6H PRN for PAIN, TAB 09/25/17 Multivitamins (Thera M Plus Tablet) 1 Tab Tab, 1 TAB PO DAILY, TAB 09/25/17 Aspirin (Aspirin EC) 81 Mg Tabec, 81 MG PO DAILY, TAB 09/25/17 Review of Systems Review of Systems Constitutional: Denies: Fatigue, Weight Loss Eyes: Denies: Pain HEENT: Denies: Head Aches Skin: Denies: Rash Pulmonary: Reports: Pleuritic Chest Pain; Denies: Dyspnea Gastrointestinal: Denies: Nausea, Abdominal Pain Genitourinary: Denies: Dysuria, Frequency, Incontinence, Retention Musculoskeletal: Denies: Neck pain, Back pain Neurological: Denies: Weakness, Numbness Psych: Reports: Mood Normal Physical Examination Vital Signs Wt 182 lbs T 98 P 75 RR 18 BP 150/81 O2 99% Pain 0 Fatigue 0 General Exam: Positive: Alert, Cooperative; Negative: No Acute Distress Eye Exam: Positive: PERRLA, EOMI ENT EXAM: Positive: Atraumatic Neck Exam: Positive: Supple Chest Exam: Positive: Clear to auscultation Heart Exam: Positive: Rate Normal Abdomen Exam: Positive: Soft Extremity Exam: Negative: Edema Skin Exam: Positive: Nl turgor and temperature Neuro Exam: Positive: Normal Gait, Normal Speech, Cranial Nerves 3-12 NL Psych Exam: Positive: Mental status NL Diagnostic and Laboratory Diagnostic Review Radiologic images, relevant labs and pathology reports were personally reviewed and discussed with Mr. Burger. Assessment and Plan Impression Assessment Mr. Burger is a 70 year old male with a history of favorable intermediate risk prostate cancer cT1c [place] 3+4=7 PSA 7.1. He is s/p EBRT 79.2 Gy in 44 fractions completed on 11/14/18. He had 6 months of ADT with this. He is doing well with no late urinary or GI toxicity from treatment. His PSA remains low. Will continue surveillance split with Dr. Morrell who is scheduled to see him in June 2021. Will see him again in 1 year. Performance Status ECOG 0 Plan 1 year with PSA Mr. Tao was encouraged to call with questions or concerns in the interim per iod. Billing Statement Total time of [20] minutes was spent preparing for the visit [3], obtaining HPI [3], examining the patient [2], reviewing diagnostic tests [1], discussing management options [3], coordinating care [0], and writing this note [8]. AIDE GUERRERO MD Dec 09, 2020 13:23
== END ==
LOC: M ONCR 10:50
PROVIDERS: ATTEND General Practice
DX: C61 Malignant neoplasm of prostate (principal)

== ENCOUNTER → 2020-12-24 | Outpatient (CLI) | payer MEDICARE, MEDICAID ==
[2020-12-24 07:27] LABS: ALBUMIN 3.8 GM/DL (3.2-5.2); ALT/SGPT 27 U/L (12-78); BILIRUBIN,TOTAL 0.3 MG/DL (0.2-1.0); BLOOD UREA NITROGEN 24 MG/DL (7-18); CALCIUM LEVEL 8.5 MG/DL (8.8-10.2); CARBON DIOXIDE LEVEL 31 MEQ/L (21-32); CHLORIDE LEVEL 104 MEQ/L (98-107); CREATININE FOR GFR 1.05 MG/DL (0.70-1.30); GLOMERULAR FILTRATION RATE > 60.0 (>42); GLUCOSE, FASTING 91 MG/DL (70-100); SODIUM LEVEL 138 MEQ/L (136-145)
== END ==
LOC: M LAB 06:23
PROVIDERS: ATTEND Internal Medicine Cardiovascular Disease
DX: E78.00 Pure hypercholesterolemia, unspecified (principal); I11.9 Hypertensive heart disease without heart failure

== ENCOUNTER 2021-06-04 07:56 | Emergency (ER) | payer MEDICARE, MEDICAID ==
[~2021-06-04] VITALS: Ht 167.6 cm; Wt 81.6 kg
[2021-06-04] MEDS ORDERED: EZET10TA21 (08:05)
[2021-06-04] MEDS ORDERED: LIDOCAINE 5% (LIDODERM) PATCH TD ONE (10:10)
[2021-06-04] MEDS ORDERED: ACETAMINOPHEN 500 MG TAB PO ONE (10:10)
--- NOTE | 2021-06-04 10:31 | REP ---
INDICATION: L shoulder pain. COMPARISON: Comparison left shoulder radiographs are from September 22, 2015. TECHNIQUE: Three views of the left shoulder. FINDINGS: The left glenohumeral and acromioclavicular joints are normally aligned. There is moderate glenohumeral osteoarthritis with spurring and sclerosis at the inferior margin of the humeral head and at the inferior glenoid. This is unchanged. There is AC joint narrowing and spur formation as well. Periarticular soft tissues are unremarkable. No erosive changes seen. No fracture is noted. 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 No traumatic abnormality seen. <Electronically signed by Melo Huggins > 06/04/21 1025
--- NOTE | 2021-06-04 10:32 | REP ---
INDICATION: L shoulder pain. COMPARISON: Comparison chest x-ray December 25, 2018. TECHNIQUE: Two views.. FINDINGS: The lungs are well inflated and free of infiltrate. The pleural angles are sharp. The heart size is normal. Pulmonary vasculature is not increased. No significant bony abnormality is seen. There are degenerative changes in the thoracic spine, the thoracic aorta, and both shoulders. IMPRESSION: No active disease. <Electronically signed by Melo Huggins > 06/04/21 [id number]
[2021-06-04 10:51] LABS: BASO % 0.6 % (0.0-1.0); EOS # 0.2 10^3/uL (0.0-0.5); EOS % 2.3 % (0.0-3.0); HEMATOCRIT 39.9 % (42.0-52.0); HEMOGLOBIN 13.7 g/dl (13.5-17.5); LYMPH # 1.3 10^3/uL (1.5-5.0); LYMPH % 19.8 % (24.0-44.0); MEAN CORPUSCULAR HEMOGLOBIN 31.7 pg (27.0-33.0); MEAN CORPUSCULAR HGB CONC 34.3 g/dl (32.0-36.5); MEAN CORPUSCULAR VOLUME 92.4 fl (80.0-96.0); MONO # 0.8 10^3/uL (0.0-0.8); MONO % 11.5 % (2.0-8.0); NEUTROPHILS # 4.3 10^3/uL (1.5-8.5); NEUTROPHILS % 65.5 % (36.0-66.0); PLATELET COUNT, AUTOMATED 215 10^3/uL (150-450); RED BLOOD COUNT 4.32 10^6/uL (4.30-6.10); WHITE BLOOD COUNT 6.5 10^3/uL (4.0-10.0)
--- NOTE | 2021-06-04 11:04 | REP ---
INDICATION: L shoulder pain, painful ROM neck. COMPARISON: None. TECHNIQUE: CT cervical spine performed in the axial plane, with sagittal and coronal reconstruction images performed. FINDINGS: There is no acute compression fracture. There is minimal anterolisthesis of C7 on T1.. There is no prevertebral soft tissue swelling. There is some straightening of the normal cervical lordosis. There is mild spurring and anterior ligamentous calcification at the C5-6 level. Subchondral cystic changes seen in the inferior aspect of C6. Uncovertebral spurring appears to cause mild left-sided foraminal narrowing at C2-3 and C4-5. Uncovertebral and facet spurring causes moderately severe foraminal narrowing on the left at C3-4. Disc bulging and uncovertebral spurring causes mild bilateral foraminal narrowing at C5-6. At C6-7 there is a disc osteophyte complex causing mild spinal stenosis and moderate bilateral foraminal narrowing. IMPRESSION: No evidence of acute fracture or dislocation.Degenerative changes as discussed above with variable foraminal narrowing as discussed above, and mild spinal stenosis at C6-7. <Electronically signed by Christopher Norwood > 06/04/21 [id number]
[2021-06-04 11:13] LABS: BLOOD UREA NITROGEN 24 MG/DL (7-18); CARBON DIOXIDE LEVEL 31 MEQ/L (21-32); CHLORIDE LEVEL 104 MEQ/L (98-107); CK-MB VALUE MASS 1.3 NG/ML (<3.6); CPK CREATINE PHOSPHOKINASE 97 U/L (39-308); CREATININE FOR GFR 1.02 MG/DL (0.70-1.30); GLOMERULAR FILTRATION RATE > 60.0 (>42); GLUCOSE, FASTING 98 MG/DL (70-100); MB/CK RELATIVE INDEX 1.34 (< OR =4); POTASSIUM SERUM 4.2 MEQ/L (3.5-5.1); SODIUM LEVEL 139 MEQ/L (136-145); TROPONIN I < 0.02 NG/ML (< 0.10)
[2021-06-04] MEDS ORDERED: ONDANSETRON 4MG/2ML VIAL IV ONE (11:55)
[2021-06-04] MEDS ORDERED: MORPHINE 2 MG/ML 1ML VIAL (J2270) IV ONE ×2 (11:55→12:35)
--- NOTE | 2021-06-04 13:12 | REPVR ---
PROCEDURE INFORMATION: Exam: CT Thoracic Spine Without Contrast Exam date and time: 06/04/2021 12:52 PM Age: 70 years old Clinical indication: Other: L scapular/l lateral back pain TECHNIQUE: Imaging protocol: Computed tomography images of the thoracic spine without contrast. Radiation optimization: All CT scans at this facility use at least one of these dose optimization techniques: automated exposure control; mA and/or kV adjustment per patient size (includes targeted exams where dose is matched to clinical indication); or iterative reconstruction. COMPARISON: CT Spine,cervical w/o contrast 06/04/2021 10:42 AM FINDINGS: Vertebrae: There is a mild scoliosis with age-appropriate degenerative change is slight accentuation of the dorsal kyphosis. No evidence of acute fracture line, high-grade compression deformity, or worrisome malalignment. Spinal epidural space: No epidural fluid. Other bones/joints: The visualized ribs are intact. Mediastinum: Tiny hiatal hernia. Pleural space: Dependent likely atelectatic changes in the included lungs with apical pleural thickening. Kidneys and ureters: Mild renal atrophy bilaterally. Vasculature: Atherosclerotic changes of the aorta. Soft tissues: No paraspinal hematoma. Other findings: No high-grade central stenosis identified. IMPRESSION: No acute fracture. Electronically signed by: Dmitriy Sterling On 06/04/2021 13:12:28 PM
[2021-06-04] MEDS ORDERED: methylPREDNISolone 125MG 2ML VIAL IV ONE (15:20)
--- NOTE | 2021-06-04 18:05 | REPVR ---
PROCEDURE INFORMATION: Exam: MR Cervical Spine Without Contrast Exam date and time: 06/04/2021 4:35 PM Age: 70 years old Clinical indication: Radicular pain (radiculopathy); Cervicothoracic region; Additional info: L shoulder/scapular pain radiating to lue, pain neck rom TECHNIQUE: Imaging protocol: Multiplanar magnetic resonance images of the cervical spine without contrast. COMPARISON: CT Spine,cervical w/o contrast 06/04/2021 10:42 AM FINDINGS: Vertebrae: 5.4 mm T5 vertebral body hemangioma. Spinal cord: Normal signal. See below. C2-C3: No significant spinal stenosis. Mild left primary facet osteoarthritis. Moderate left neural foraminal narrowing. C3-C4: Mild posterior annular bulging. Moderate left primary facet osteoarthritis. The AP thecal sac dimension is 8.5 mm. Severe left neural foraminal narrowing. C4-C5: No significant disc disease. No significant spinal stenosis. The AP thecal sac dimension is 10.3 mm. C5-C6: Moderate posterior annular bulging with mild spondylosis. Possible mild anterior cord impingement. The AP thecal sac dimension is 6.9 mm. Moderate left neural foraminal narrowing. Severe right neural foraminal narrowing. C6-C7: Mild-moderate posterior annular bulging. The AP thecal sac dimension is 8.3 mm. Severe left neural foraminal narrowing. C7-T1: 2.9 mm anterolisthesis in the supine position. Mild posterior annular bulging. Moderate right primary facet osteoarthritis. Soft tissues: Unremarkable. Vertebral arteries: Expected flow voids in the vertebral arteries. IMPRESSION: Moderate C5-C6 spinal stenosis, possible mild anterior cord impingement. Moderate C6-C7 spinal stenosis. Mild C3-C4 spinal stenosis. Neural foraminal stenoses as above. Please see additional findings as above. Electronically signed by: Dedrick Spain On 06/04/2021 18:05:24 PM
[2021-06-04 18:19] VITALS: BP 154/87
[2021-06-04] MEDS ORDERED: **NOTE PATIENT COMMENT** MISC XX ONE (21:00)
[2021-06-04] MEDS ORDERED: **NOTE PATIENT COMMENT** MISC XX SCH (21:00)
--- NOTE | 2021-06-06 19:43 | ECGEPIP ---
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
== END 2021-06-04 18:23 | disposition home or self-care (01) ==
LOC: M ED 07:56
DX: M48.02 Spinal stenosis, cervical region (principal); M25.512 Pain in left shoulder; M19.012 Primary osteoarthritis, left shoulder; I70.0 Atherosclerosis of aorta; I45.10 Unspecified right bundle-branch block; I10 Essential (primary) hypertension; E78.5 Hyperlipidemia, unspecified; M54.5 Low back pain; Z88.1 Allergy status to other antibiotic agents; Z88.8 Allergy status to other drugs, medicaments and biological substances; Z79.899 Other long term (current) drug therapy
CPT/HCPCS: 71046; 72125; 72128; 72141; 73030; 80048; 82550; 82553; 84484; 85025; 93005; 96374; 96375; 96376; 99284; J2270; J2405; J2930

== ENCOUNTER → 2021-07-15 | Outpatient (CLI) | payer MEDICARE, MEDICAID ==
[~2021-07-15] MED LIST changes: +EZET10TA21
== END ==
LOC: M PLALAB 15:09
PROVIDERS: ATTEND Urology
DX: C61 Malignant neoplasm of prostate (principal)

== ENCOUNTER → 2021-08-16 | Outpatient (CLI) | payer MEDICARE, MEDICAID ==
[2021-08-16 08:50] LABS: HEMATOCRIT 38.7 % (42.0-52.0); HEMOGLOBIN 13.3 g/dl (13.5-17.5); MEAN CORPUSCULAR HEMOGLOBIN 31.4 pg (27.0-33.0); MEAN CORPUSCULAR HGB CONC 34.4 g/dl (32.0-36.5); MEAN CORPUSCULAR VOLUME 91.5 fl (80.0-96.0); PLATELET COUNT, AUTOMATED 201 10^3/uL (150-450); RED BLOOD COUNT 4.23 10^6/uL (4.30-6.10); WHITE BLOOD COUNT 5.7 10^3/uL (4.0-10.0)
[2021-08-16 09:04] LABS: INR 1.03; PROTHROMBIN TIME 13.9 SECONDS (12.7-14.5)
[2021-08-16 09:09] LABS: ERYTHROCYTE SEDIMENTATION RATE 25 mm/hr (0-20)
== END ==
LOC: M LAB 07:13
PROVIDERS: ATTEND Orthopaedic Surgery
DX: Z01.818 Encounter for other preprocedural examination (principal); M17.12 Unilateral primary osteoarthritis, left knee

== ENCOUNTER → 2021-10-01 | Outpatient (CLI) | payer MEDICARE, MEDICAID ==
[~2021-10-01] MED LIST changes: -LISI-898 PO; +LISI5TAB11 PO; +LOSA50TA28 PO; -LOSA50TA88 PO
[2021-10-01 10:02] LABS: HEMATOCRIT 38.1 % (42.0-52.0); HEMOGLOBIN 13.1 g/dl (13.5-17.5); MEAN CORPUSCULAR HEMOGLOBIN 31.6 pg (27.0-33.0); MEAN CORPUSCULAR HGB CONC 34.4 g/dl (32.0-36.5); MEAN CORPUSCULAR VOLUME 91.8 fl (80.0-96.0); PLATELET COUNT, AUTOMATED 217 10^3/uL (150-450); RED BLOOD COUNT 4.15 10^6/uL (4.30-6.10); WHITE BLOOD COUNT 6.1 10^3/uL (4.0-10.0)
[2021-10-01 10:13] LABS: INR 1.03; PROTHROMBIN TIME 13.9 SECONDS (12.7-14.5)
[2021-10-01 10:22] LABS: ERYTHROCYTE SEDIMENTATION RATE 26 mm/hr (0-20)
[2021-10-01 10:49] LABS: ALT/SGPT 33 U/L (12-78); BILIRUBIN,TOTAL 0.5 MG/DL (0.2-1.0); BLOOD UREA NITROGEN 25 MG/DL (7-18); CALCIUM LEVEL 8.7 MG/DL (8.8-10.2); CARBON DIOXIDE LEVEL 32 MEQ/L (21-32); CHLORIDE LEVEL 103 MEQ/L (98-107); CREATININE FOR GFR 1.11 MG/DL (0.70-1.30); GLOMERULAR FILTRATION RATE > 60.0 (>42); GLUCOSE, FASTING 85 MG/DL (70-100); POTASSIUM SERUM 3.9 MEQ/L (3.5-5.1); SODIUM LEVEL 138 MEQ/L (136-145); TOTAL PROTEIN 7.2 GM/DL (6.4-8.2)
== END ==
LOC: M RAD 09:19
PROVIDERS: ATTEND Orthopaedic Surgery
DX: Z01.818 Encounter for other preprocedural examination (principal); I10 Essential (primary) hypertension

== ENCOUNTER → 2021-11-29 | Outpatient (CLI) | payer MEDICARE, MEDICAID | LOC: M LAB 07:27 | PROVIDERS: ATTEND General Practice | DX: C61 Malignant neoplasm of prostate (principal) ==

== ENCOUNTER → 2021-12-01 | Outpatient (CLI) | payer MEDICARE, MEDICAID | LOC: M ONCR 08:58 | PROVIDERS: ATTEND General Practice | DX: C61 Malignant neoplasm of prostate (principal); Z79.82 Long term (current) use of aspirin; Z79.899 Other long term (current) drug therapy; Z88.1 Allergy status to other antibiotic agents; Z88.8 Allergy status to other drugs, medicaments and biological substances; Z92.3 Personal history of irradiation ==

== ENCOUNTER → 2021-12-07 | Outpatient (CLI) | payer MEDICARE, MEDICAID ==
[2021-12-07 10:22] LABS: HEMATOCRIT 38.2 % (42.0-52.0); HEMOGLOBIN 13.2 g/dl (13.5-17.5); MEAN CORPUSCULAR HEMOGLOBIN 31.2 pg (27.0-33.0); MEAN CORPUSCULAR HGB CONC 34.6 g/dl (32.0-36.5); MEAN CORPUSCULAR VOLUME 90.3 fl (80.0-96.0); PLATELET COUNT, AUTOMATED 217 10^3/uL (150-450); RED BLOOD COUNT 4.23 10^6/uL (4.30-6.10); WHITE BLOOD COUNT 6.7 10^3/uL (4.0-10.0)
[2021-12-07 10:34] LABS: INR 1.02; PROTHROMBIN TIME 13.8 SECONDS (12.7-14.5)
[2021-12-07 10:54] LABS: ERYTHROCYTE SEDIMENTATION RATE 26 mm/hr (0-20)
[2021-12-07 10:57] LABS: ALBUMIN 4.1 GM/DL (3.2-5.2); ALT/SGPT 31 U/L (12-78); BILIRUBIN,TOTAL 0.4 MG/DL (0.2-1.0); BLOOD UREA NITROGEN 23 MG/DL (7-18); CALCIUM LEVEL 9.2 MG/DL (8.8-10.2); CARBON DIOXIDE LEVEL 32 MEQ/L (21-32); CHLORIDE LEVEL 104 MEQ/L (98-107); CREATININE FOR GFR 1.09 MG/DL (0.70-1.30); GLOMERULAR FILTRATION RATE > 60.0 (>42); GLUCOSE, FASTING 97 MG/DL (70-100); POTASSIUM SERUM 4.2 MEQ/L (3.5-5.1); SODIUM LEVEL 140 MEQ/L (136-145); TOTAL PROTEIN 7.3 GM/DL (6.4-8.2)
== END ==
LOC: M RAD 09:38
PROVIDERS: ATTEND Orthopaedic Surgery
DX: Z01.818 Encounter for other preprocedural examination (principal); M17.12 Unilateral primary osteoarthritis, left knee

== ENCOUNTER → 2022-07-14 | Outpatient (CLI) | payer MEDICARE, MEDICAID | LOC: M PLALAB 07:56 | PROVIDERS: ATTEND Urology | DX: C61 Malignant neoplasm of prostate (principal) ==

== ENCOUNTER → 2022-11-28 | Outpatient (CLI) | payer MEDICARE, MEDICAID | LOC: M LAB 07:03 | PROVIDERS: ATTEND General Practice | DX: C61 Malignant neoplasm of prostate (principal) ==

== ENCOUNTER → 2022-12-01 | Outpatient (CLI) | payer MEDICARE, MEDICAID | LOC: M ONCR 08:52 | PROVIDERS: ATTEND General Practice | DX: C61 Malignant neoplasm of prostate (principal); Z79.899 Other long term (current) drug therapy; Z88.0 Allergy status to penicillin; Z88.1 Allergy status to other antibiotic agents; Z92.3 Personal history of irradiation ==

== ENCOUNTER → 2023-07-17 | Outpatient (CLI) | payer MEDICARE, MEDICAID | LOC: M PLALAB 08:27 | PROVIDERS: ATTEND Urology | DX: C61 Malignant neoplasm of prostate (principal) ==

== ENCOUNTER 2023-11-17 08:11 | Inpatient (IN) | payer MEDICARE, MEDICAID ==
[~2023-11-17] VITALS: Ht 165.1 cm; Wt 84.6 kg
[~2023-11-17 08:11] MED LIST changes: -EZET10TA21; +EZET10TA21 PO
[2023-11-17] MEDS: ONDANSETRON 4MG 2ML VIAL IV ONE (09:05)
[2023-11-17] MEDS: NS 500 ML IV ONE (09:05)
[2023-11-17] MEDS: MORPHINE 4 MG/ML 1ML VIAL IV ONE (09:05)
[2023-11-17 09:32] LABS: BASO # 0.1 10^3/uL (0.0-0.2); BASO % 0.8 % (0.0-1.0); EOS # 0.2 10^3/uL (0.0-0.5); EOS % 3.8 % (0.0-3.0); HEMATOCRIT 42.2 % (42.0-52.0); HEMOGLOBIN 14.6 g/dl (13.5-17.5); LYMPH # 1.1 10^3/uL (1.5-5.0); LYMPH % 17.7 % (24.0-44.0); MEAN CORPUSCULAR HEMOGLOBIN 31.3 pg (27.0-33.0); MEAN CORPUSCULAR HGB CONC 34.6 g/dl (32.0-36.5); MEAN CORPUSCULAR VOLUME 90.4 fl (80.0-96.0); MONO # 0.7 10^3/uL (0.0-0.8); MONO % 10.3 % (2.0-8.0); NEUTROPHILS # 4.3 10^3/uL (1.5-8.5); NEUTROPHILS % 67.2 % (36.0-66.0); PLATELET COUNT, AUTOMATED 228 10^3/uL (150-450); RED BLOOD COUNT 4.67 10^6/uL (4.30-6.10); WHITE BLOOD COUNT 6.3 10^3/uL (4.0-10.0)
[2023-11-17 09:59] LABS: LIPASE 28 U/L (12-53)
[2023-11-17 10:01] LABS: ALBUMIN 3.9 G/DL (3.2-5.2); ALKALINE PHOSPHATASE 96 U/L (46-116); ALT/SGPT 27 U/L (7.0-40); AST/SGOT 19 U/L (<34); BILIRUBIN,DIRECT 0.1 MG/DL (<0.4); BILIRUBIN,TOTAL 0.4 MG/DL (0.3-1.2); BLOOD UREA NITROGEN 18 MG/DL (9-23); CALCIUM LEVEL 9.2 MG/DL (8.3-10.6); CARBON DIOXIDE LEVEL 31 MMOL/L (20-31); CHLORIDE LEVEL 104 MMOL/L (98-107); CREATININE FOR GFR 0.98 MG/DL (0.70-1.30); GLOMERULAR FILTRATION RATE > 60.0 (>42); GLUCOSE, FASTING 114 MG/DL (74-106); POTASSIUM SERUM 3.9 MMOL/L (3.5-5.1); SODIUM LEVEL 141 MMOL/L (136-145); TOTAL PROTEIN 6.8 G/DL (5.7-8.2)
[2023-11-17] MEDS ORDERED: ISOVUE-370 76% 100ML VIAL As Ordered ONE (10:06)
[2023-11-17] MEDS: MORPHINE 2 MG/ML 1ML VIAL IV ONE (11:35)
[2023-11-17] MEDS: PIPERACILLIN/TAZOBACTAM SOD 3.375 GM in D5W MINI-BAG PLUS 50 ML IV ONE (13:05)
[2023-11-17] MEDS ORDERED: CLOP75TA2 PO (13:39)
[2023-11-17] MEDS ORDERED: METO1TAB33 PO (13:39)
[2023-11-17] MEDS ORDERED: MULT-40 PO (13:39)
[2023-11-17] MEDS ORDERED: LOSA100T46 PO (13:39)
[2023-11-17] MEDS ORDERED: CHLO125TA PO (13:39)
[2023-11-17] MEDS ORDERED: HOME MED LIST COMPLETE! XX SCH (13:45)
[2023-11-17] MEDS ORDERED: ACETAMINOPHEN TAB 650MG DOSE (2X325MG) PO PRN (14:30)
[2023-11-17 14:31] LABS: RSV AMPLIFICATION NEGATIVE (NEGATIVE)
[2023-11-17] MEDS: MORPHINE 2 MG/ML 1ML VIAL IV PRN (14:45)
[2023-11-17 15:15] VITALS: BP 122/78; TEMP 97.8; O2SAT 96
[2023-11-17] MEDS: ASPIRIN 81MG ENTERIC TABLET PO SCH (15:46)
[2023-11-17] MEDS: CLOPIDOGREL 75 MG TAB PO SCH (15:47)
[2023-11-17] MEDS: PANTOPRAZOLE 40MG VIAL IV ONE (15:47)
[2023-11-17] MEDS: LR 1,000 ML IV SCH (15:47)
[2023-11-17] MEDS: SUCRALFATE 1 GM TAB PO SCH (16:00)
[2023-11-17] MEDS: CHLORTHALIDONE 12.5MG PER 1/2 TABLET PO SCH (16:00)
[2023-11-17] MEDS: PERCOCET 5MG/325MG TAB PO PRN (16:01)
[2023-11-17] MEDS: METOCLOPRAMIDE INJ 10MG/2ML VIAL IV PRN (18:08)
[2023-11-17] MEDS: PIPERACILLIN/TAZOBACTAM SOD 3.375 GM in D5W MINI-BAG PLUS 50 ML IV SCH (18:13)
[2023-11-17] MEDS: ATORVASTATIN 20 MG TAB PO SCH (19:57)
[2023-11-17] MEDS: EZETIMIBE 10MG TABLET (ZETIA) PO SCH (19:58)
[2023-11-17] MEDS: LOSARTAN 50MG TABLET PO SCH (19:58)
[2023-11-17 20:00] VITALS: BP 163/81; TEMP 98.2; O2SAT 91
[2023-11-17] MEDS ORDERED: METOPROLOL SUCC (TopROL XL) 100MG *XL* TAB PO SCH (21:00)
[2023-11-17] MEDS: HEPARIN SOD (PORCINE) 5000UNITS/ML 1ML VIAL/SYRINGE SC SCH (22:15)
[2023-11-18] MEDS: KETOROLAC 30 MG/ML 1ML VIAL IV ONE (05:07)
[2023-11-18 06:00] VITALS: BP_SYST 145; BP_SYST 146; BP_DIAS 71; BP_DIAS 91; TEMP 97.3; TEMP 98.2; O2SAT 94; O2SAT 95
[2023-11-18 06:27] LABS: BASO % 0.2 % (0.0-1.0); HEMATOCRIT 38.2 % (42.0-52.0); HEMOGLOBIN 12.9 g/dl (13.5-17.5); LYMPH # 0.9 10^3/uL (1.5-5.0); LYMPH % 7.9 % (24.0-44.0); MEAN CORPUSCULAR HGB CONC 33.8 g/dl (32.0-36.5); MEAN CORPUSCULAR VOLUME 91.8 fl (80.0-96.0); MONO # 0.8 10^3/uL (0.0-0.8); MONO % 7.3 % (2.0-8.0); NEUTROPHILS # 9.1 10^3/uL (1.5-8.5); NEUTROPHILS % 84.3 % (36.0-66.0); PLATELET COUNT, AUTOMATED 217 10^3/uL (150-450); RED BLOOD COUNT 4.16 10^6/uL (4.30-6.10); WHITE BLOOD COUNT 10.8 10^3/uL (4.0-10.0)
[2023-11-18 06:58] LABS: ALBUMIN 3.4 G/DL (3.2-5.2); ALKALINE PHOSPHATASE 82 U/L (46-116); ALT/SGPT 23 U/L (7.0-40); AST/SGOT 17 U/L (<34); BILIRUBIN,TOTAL 0.6 MG/DL (0.3-1.2); BLOOD UREA NITROGEN 20 MG/DL (9-23); CALCIUM LEVEL 8.4 MG/DL (8.3-10.6); CARBON DIOXIDE LEVEL 30 MMOL/L (20-31); CHLORIDE LEVEL 105 MMOL/L (98-107); CREATININE FOR GFR 1.05 MG/DL (0.70-1.30); GLOMERULAR FILTRATION RATE > 60.0 (>42); GLUCOSE, FASTING 144 MG/DL (74-106); MAGNESIUM LEVEL 1.8 MG/DL (1.8-2.4); POTASSIUM SERUM 4.3 MMOL/L (3.5-5.1); SODIUM LEVEL 139 MMOL/L (136-145); TOTAL PROTEIN 6.1 G/DL (5.7-8.2)
[2023-11-18] MEDS: PANTOPRAZOLE 40MG TAB (PROTONIX) PO SCH (08:13)
[2023-11-18] MEDS: METOPROLOL TART 50 MG TAB PO SCH (08:13)
[2023-11-18] MEDS ORDERED: PANT40TA29 PO (10:35)
[2023-11-18] MEDS ORDERED: SUCR1TA PO (10:35)
[2023-11-18] MEDS ORDERED: DICL50TA2 PO (10:38)
[2023-11-18] MEDS: DOCUSATE SODIUM 100MG CAPSULE PO SCH (12:19)
[2023-11-18] MEDS: MIRALAX *UNIT DOSE* 17GM PACKET PO ONE (12:19)
[2023-11-18 12:43] VITALS: BP 141/87; TEMP 97.9; O2SAT 92
[2023-11-18] MEDS: KETOROLAC 30 MG/ML 1ML VIAL IV PRN (12:55)
[2023-11-18 14:00] VITALS: BP 151/80; TEMP 98.1; O2SAT 95
[2023-11-18] MEDS: ONDANSETRON 4MG 2ML VIAL IV SCH (18:39)
[2023-11-18] MEDS: LR 1,000 ML IV SCH (18:42)
[2023-11-18 20:18] VITALS: BP 174/84; TEMP 98.8; O2SAT 97
[2023-11-18] MEDS: PANTOPRAZOLE 40MG VIAL IV SCH (20:20)
[2023-11-18] MEDS ORDERED: DOCUSATE SODIUM 100MG CAPSULE PO SCH (21:00)
[2023-11-19 05:40] VITALS: BP 141/78; TEMP 98.4; O2SAT 90
[2023-11-19 06:55] LABS: BASO % 0.3 % (0.0-1.0); EOS % 0.2 % (0.0-3.0); HEMATOCRIT 38.1 % (42.0-52.0); HEMOGLOBIN 13.4 g/dl (13.5-17.5); LYMPH # 0.9 10^3/uL (1.5-5.0); LYMPH % 8.1 % (24.0-44.0); MEAN CORPUSCULAR HEMOGLOBIN 31.8 pg (27.0-33.0); MEAN CORPUSCULAR HGB CONC 35.2 g/dl (32.0-36.5); MEAN CORPUSCULAR VOLUME 90.5 fl (80.0-96.0); MONO # 1.1 10^3/uL (0.0-0.8); MONO % 9.8 % (2.0-8.0); NEUTROPHILS # 9.3 10^3/uL (1.5-8.5); NEUTROPHILS % 81.3 % (36.0-66.0); PLATELET COUNT, AUTOMATED 211 10^3/uL (150-450); RED BLOOD COUNT 4.21 10^6/uL (4.30-6.10); WHITE BLOOD COUNT 11.5 10^3/uL (4.0-10.0)
[2023-11-19 07:24] LABS: BLOOD UREA NITROGEN 27 MG/DL (9-23); CALCIUM LEVEL 8.5 MG/DL (8.3-10.6); CARBON DIOXIDE LEVEL 29 MMOL/L (20-31); CHLORIDE LEVEL 100 MMOL/L (98-107); CREATININE FOR GFR 1.13 MG/DL (0.70-1.30); GLOMERULAR FILTRATION RATE > 60.0 (>42); GLUCOSE, FASTING 98 MG/DL (74-106); POTASSIUM SERUM 3.7 MMOL/L (3.5-5.1); SODIUM LEVEL 137 MMOL/L (136-145)
[2023-11-19 08:00] VITALS: O2SAT 92
[2023-11-19 10:56] VITALS: BP 138/86
[2023-11-19] MEDS: LR 1,000 ML IV SCH (10:57)
[2023-11-19] MEDS: ONDANSETRON 4MG 2ML VIAL IV ONE (13:41)
[2023-11-19 14:00] VITALS: BP 141/86; TEMP 97.7; O2SAT 94
[2023-11-19] MEDS ORDERED: ONDANSETRON 4MG 2ML VIAL IV SCH (19:00)
[2023-11-19 21:00] VITALS: BP 113/81; TEMP 97.4; O2SAT 92
[2023-11-19] MEDS: ONDANSETRON 4MG 2ML VIAL IV SCH (21:03)
[2023-11-19] MEDS: ACETAMINOPHEN 500 MG TAB PO PRN (21:04)
[2023-11-20 05:26] VITALS: BP 144/76; TEMP 97.4; O2SAT 90
[2023-11-20 05:52] LABS: BASO % 0.3 % (0.0-1.0); EOS % 0.4 % (0.0-3.0); HEMATOCRIT 38.9 % (42.0-52.0); HEMOGLOBIN 13.4 g/dl (13.5-17.5); LYMPH # 0.9 10^3/uL (1.5-5.0); LYMPH % 8.5 % (24.0-44.0); MEAN CORPUSCULAR HEMOGLOBIN 31.8 pg (27.0-33.0); MEAN CORPUSCULAR HGB CONC 34.4 g/dl (32.0-36.5); MEAN CORPUSCULAR VOLUME 92.4 fl (80.0-96.0); MONO # 1.1 10^3/uL (0.0-0.8); MONO % 9.6 % (2.0-8.0); NEUTROPHILS # 8.9 10^3/uL (1.5-8.5); NEUTROPHILS % 80.8 % (36.0-66.0); PLATELET COUNT, AUTOMATED 218 10^3/uL (150-450); RED BLOOD COUNT 4.21 10^6/uL (4.30-6.10)
[2023-11-20] MEDS: KETOROLAC 30 MG/ML 1ML VIAL IV ONE (06:11)
[2023-11-20 06:22] LABS: BLOOD UREA NITROGEN 26 MG/DL (9-23); CALCIUM LEVEL 8.2 MG/DL (8.3-10.6); CARBON DIOXIDE LEVEL 32 MMOL/L (20-31); CHLORIDE LEVEL 101 MMOL/L (98-107); CREATININE FOR GFR 1.22 MG/DL (0.70-1.30); GLOMERULAR FILTRATION RATE > 60.0 (>42); GLUCOSE, FASTING 106 MG/DL (74-106); POTASSIUM SERUM 4.3 MMOL/L (3.5-5.1); SODIUM LEVEL 137 MMOL/L (136-145)
[2023-11-20] MEDS ORDERED: E-Z-GAS II EFFERVESCENT PACKET (SODIUM BICARB./CITRIC ACID/SIMETHICONE) As Ordered ONE (08:14)
[2023-11-20] MEDS ORDERED: E-Z-HD 98% w/w 340GM SUSP BTL As Ordered ONE (08:14)
[2023-11-20] MEDS ORDERED: E-Z-PAQUE 96% w/w SUSP 176GM BTL As Ordered ONE (08:14)
[2023-11-20] MEDS ORDERED: ASPIRIN 81MG ENTERIC TABLET PO SCH (09:00)
[2023-11-20 12:16] VITALS: BP 125/79
[2023-11-20 14:00] VITALS: BP 134/79; TEMP 97.7; O2SAT 90
[2023-11-20 18:20] LABS: HEMATOCRIT 35.2 % (42.0-52.0); HEMOGLOBIN 12.1 g/dl (13.5-17.5)
[2023-11-20 21:00] VITALS: BP 120/63; TEMP 97.9; O2SAT 96
[2023-11-21 06:09] LABS: BASO % 0.5 % (0.0-1.0); EOS # 0.2 10^3/uL (0.0-0.5); EOS % 2.7 % (0.0-3.0); HEMATOCRIT 34.5 % (42.0-52.0); HEMOGLOBIN 11.7 g/dl (13.5-17.5); LYMPH % 11.3 % (24.0-44.0); MEAN CORPUSCULAR HEMOGLOBIN 31.4 pg (27.0-33.0); MEAN CORPUSCULAR HGB CONC 33.9 g/dl (32.0-36.5); MEAN CORPUSCULAR VOLUME 92.5 fl (80.0-96.0); MONO % 11.8 % (2.0-8.0); NEUTROPHILS # 6.3 10^3/uL (1.5-8.5); NEUTROPHILS % 73.4 % (36.0-66.0); PLATELET COUNT, AUTOMATED 193 10^3/uL (150-450); RED BLOOD COUNT 3.73 10^6/uL (4.30-6.10); WHITE BLOOD COUNT 8.6 10^3/uL (4.0-10.0)
[2023-11-21 06:11] LABS: HEMATOCRIT 34.3 % (42.0-52.0); HEMOGLOBIN 11.7 g/dl (13.5-17.5)
[2023-11-21 06:39] VITALS: BP 118/61; TEMP 98.1; O2SAT 94
[2023-11-21 06:50] LABS: BLOOD UREA NITROGEN 28 MG/DL (9-23); CALCIUM LEVEL 7.7 MG/DL (8.3-10.6); CARBON DIOXIDE LEVEL 30 MMOL/L (20-31); CHLORIDE LEVEL 104 MMOL/L (98-107); CREATININE FOR GFR 1.22 MG/DL (0.70-1.30); GLOMERULAR FILTRATION RATE > 60.0 (>42); GLUCOSE, FASTING 90 MG/DL (74-106); POTASSIUM SERUM 3.4 MMOL/L (3.5-5.1); SODIUM LEVEL 138 MMOL/L (136-145)
[2023-11-21 08:00] VITALS: BP 115/59; TEMP 97.9; O2SAT 95
[2023-11-21] MEDS: POTASSIUM CHLORIDE 10MEQ SR TABLET PO ONE ×2 (11:36→18:20)
[2023-11-21 14:00] VITALS: BP 131/68; TEMP 97.9; O2SAT 93
[2023-11-21 17:29] LABS: HEMATOCRIT 32.7 % (42.0-52.0); HEMOGLOBIN 11.5 g/dl (13.5-17.5)
[2023-11-21 20:53] VITALS: BP 130/68; TEMP 98.6; O2SAT 98
[2023-11-22 05:10] VITALS: BP 125/63; TEMP 97.3; O2SAT 93
[2023-11-22 05:51] LABS: BASO % 0.4 % (0.0-1.0); EOS # 0.3 10^3/uL (0.0-0.5); EOS % 3.2 % (0.0-3.0); HEMATOCRIT 33.2 % (42.0-52.0); HEMOGLOBIN 11.6 g/dl (13.5-17.5); LYMPH # 0.8 10^3/uL (1.5-5.0); LYMPH % 9.5 % (24.0-44.0); MEAN CORPUSCULAR HEMOGLOBIN 32.3 pg (27.0-33.0); MEAN CORPUSCULAR HGB CONC 34.9 g/dl (32.0-36.5); MEAN CORPUSCULAR VOLUME 92.5 fl (80.0-96.0); MONO # 0.9 10^3/uL (0.0-0.8); MONO % 11.1 % (2.0-8.0); NEUTROPHILS # 6.2 10^3/uL (1.5-8.5); NEUTROPHILS % 75.4 % (36.0-66.0); PLATELET COUNT, AUTOMATED 184 10^3/uL (150-450); RED BLOOD COUNT 3.59 10^6/uL (4.30-6.10); WHITE BLOOD COUNT 8.2 10^3/uL (4.0-10.0)
[2023-11-22 06:27] LABS: BLOOD UREA NITROGEN 22 MG/DL (9-23); CALCIUM LEVEL 7.8 MG/DL (8.3-10.6); CARBON DIOXIDE LEVEL 28 MMOL/L (20-31); CHLORIDE LEVEL 104 MMOL/L (98-107); CREATININE FOR GFR 1.13 MG/DL (0.70-1.30); GLOMERULAR FILTRATION RATE > 60.0 (>42); GLUCOSE, FASTING 78 MG/DL (74-106); MAGNESIUM LEVEL 1.9 MG/DL (1.8-2.4); POTASSIUM SERUM 3.7 MMOL/L (3.5-5.1); SODIUM LEVEL 137 MMOL/L (136-145)
[2023-11-22 08:09] VITALS: BP 128/66
[2023-11-22] MEDS: DOCUSATE SODIUM 100MG CAPSULE PO ONE (11:10)
[2023-11-22] MEDS: ASPIRIN 81MG ENTERIC TABLET PO SCH (11:37)
[2023-11-22] MEDS: SIMETHICONE 80MG CHEW TAB PO SCH (13:39)
[2023-11-22] MEDS: SENNA 8.6 MG TAB (SENOKOT) PO SCH (13:45)
[2023-11-22 14:00] VITALS: BP 130/67; TEMP 98.1; O2SAT 92
[2023-11-22] MEDS ORDERED: ONDANSETRON 4MG 2ML VIAL IV PRN (16:40)
[2023-11-22 17:45] LABS: HEMATOCRIT 33.9 % (42.0-52.0); HEMOGLOBIN 11.8 g/dl (13.5-17.5)
[2023-11-22 21:00] VITALS: BP 131/67; TEMP 97.9; O2SAT 92
[2023-11-22] MEDS: DOCUSATE SODIUM 100MG CAPSULE PO SCH (21:15)
[2023-11-23 04:50] VITALS: BP 125/57; TEMP 97.7; O2SAT 94
[2023-11-23 06:44] LABS: BASO % 0.4 % (0.0-1.0); EOS # 0.2 10^3/uL (0.0-0.5); HEMATOCRIT 30.9 % (42.0-52.0); HEMOGLOBIN 10.7 g/dl (13.5-17.5); LYMPH # 0.9 10^3/uL (1.5-5.0); LYMPH % 11.2 % (24.0-44.0); MEAN CORPUSCULAR HEMOGLOBIN 31.9 pg (27.0-33.0); MEAN CORPUSCULAR HGB CONC 34.6 g/dl (32.0-36.5); MEAN CORPUSCULAR VOLUME 92.2 fl (80.0-96.0); MONO # 0.8 10^3/uL (0.0-0.8); NEUTROPHILS # 5.6 10^3/uL (1.5-8.5); PLATELET COUNT, AUTOMATED 170 10^3/uL (150-450); RED BLOOD COUNT 3.35 10^6/uL (4.30-6.10); WHITE BLOOD COUNT 7.6 10^3/uL (4.0-10.0)
[2023-11-23 07:21] LABS: BLOOD UREA NITROGEN 14 MG/DL (9-23); CALCIUM LEVEL 7.8 MG/DL (8.3-10.6); CARBON DIOXIDE LEVEL 28 MMOL/L (20-31); CHLORIDE LEVEL 105 MMOL/L (98-107); CREATININE FOR GFR 1.13 MG/DL (0.70-1.30); GLOMERULAR FILTRATION RATE > 60.0 (>42); GLUCOSE, FASTING 90 MG/DL (74-106); MAGNESIUM LEVEL 1.8 MG/DL (1.8-2.4); POTASSIUM SERUM 3.6 MMOL/L (3.5-5.1); SODIUM LEVEL 138 MMOL/L (136-145)
[2023-11-23 08:32] VITALS: BP 126/64; TEMP 98.1; O2SAT 95
[2023-11-23] MEDS ORDERED: PILL CUTTER 1 EACH XX ONE (09:08)
[2023-11-23 14:44] VITALS: BP 128/68; TEMP 97.9; O2SAT 95
[2023-11-23 22:40] VITALS: BP 138/74; TEMP 97.5; O2SAT 88
[2023-11-24 04:40] VITALS: BP 133/70; TEMP 97.7; O2SAT 93
[2023-11-24 06:13] LABS: BASO % 0.5 % (0.0-1.0); EOS # 0.2 10^3/uL (0.0-0.5); EOS % 3.2 % (0.0-3.0); HEMATOCRIT 33.1 % (42.0-52.0); HEMOGLOBIN 11.4 g/dl (13.5-17.5); LYMPH # 0.8 10^3/uL (1.5-5.0); LYMPH % 12.3 % (24.0-44.0); MEAN CORPUSCULAR HEMOGLOBIN 31.6 pg (27.0-33.0); MEAN CORPUSCULAR HGB CONC 34.4 g/dl (32.0-36.5); MEAN CORPUSCULAR VOLUME 91.7 fl (80.0-96.0); MONO # 0.7 10^3/uL (0.0-0.8); MONO % 10.3 % (2.0-8.0); NEUTROPHILS # 4.8 10^3/uL (1.5-8.5); NEUTROPHILS % 73.4 % (36.0-66.0); PLATELET COUNT, AUTOMATED 177 10^3/uL (150-450); RED BLOOD COUNT 3.61 10^6/uL (4.30-6.10); WHITE BLOOD COUNT 6.5 10^3/uL (4.0-10.0)
[2023-11-24 06:44] LABS: BLOOD UREA NITROGEN 10 MG/DL (9-23); CALCIUM LEVEL 7.9 MG/DL (8.3-10.6); CARBON DIOXIDE LEVEL 29 MMOL/L (20-31); CHLORIDE LEVEL 105 MMOL/L (98-107); CREATININE FOR GFR 0.91 MG/DL (0.70-1.30); GLOMERULAR FILTRATION RATE > 60.0 (>42); GLUCOSE, FASTING 96 MG/DL (74-106); MAGNESIUM LEVEL 1.8 MG/DL (1.8-2.4); POTASSIUM SERUM 3.4 MMOL/L (3.5-5.1); SODIUM LEVEL 139 MMOL/L (136-145)
[2023-11-24] MEDS: POTASSIUM CHLORIDE 10MEQ SR TABLET PO ONE (09:22)
[2023-11-24 09:23] VITALS: BP 142/74
[2023-11-24] MEDS ORDERED: SENN8.6T58 PO (11:34)
== END 2023-11-24 12:54 | disposition home or self-care (01) | DRG 394 ==
LOC: M ED 08:11 → M ED INP 13:56 → M MSPAV 15:14 → OBSVTOIN 11-20 17:09
PROVIDERS: ADMIT Student in an Organized Health Care Education/Training Program; ATTEND Internal Medicine
DX: K52.0 Gastroenteritis and colitis due to radiation (principal); K56.600 Partial intestinal obstruction, unspecified as to cause; I10 Essential (primary) hypertension; K57.90 Diverticulosis of intestine, part unspecified, without perforation or abscess without bleeding; K21.9 Gastro-esophageal reflux disease without esophagitis; E87.6 Hypokalemia; Z86.73 Personal history of transient ischemic attack (TIA), and cerebral infarction without residual deficits; E78.5 Hyperlipidemia, unspecified; Z79.899 Other long term (current) drug therapy; Z79.82 Long term (current) use of aspirin; Z88.0 Allergy status to penicillin; Z88.8 Allergy status to other drugs, medicaments and biological substances; M19.90 Unspecified osteoarthritis, unspecified site; Z98.42 Cataract extraction status, left eye; Z96.642 Presence of left artificial hip joint; C61 Malignant neoplasm of prostate; D64.9 Anemia, unspecified

== ENCOUNTER 2023-12-12 07:14 | Emergency (ER) | payer MEDICARE, MEDICAID ==
[~2023-12-12] VITALS: Ht 165.1 cm; Wt 82.1 kg
[~2023-12-12 07:14] MED LIST changes: +CLOP75TA2 PO; +DICL50TA2 PO; +LOSA100T46 PO; +MULT-40 PO; +PANT40TA29 PO; +SENN8.6T58 PO; +SUCR1TA PO
[2023-12-12] MEDS: LIDOCAINE 5% (LIDODERM) PATCH TD ONE (10:21)
[2023-12-12] MEDS: KETOROLAC 60MG 2ML VIAL IM ONE (10:22)
[2023-12-12] MEDS: CYCLOBENZAPRINE 10MG TABLET PO ONE (10:22)
[2023-12-12] MEDS ORDERED: SENN-83 PO (11:04)
[2023-12-12] MEDS ORDERED: PANT-23 PO (11:04)
[2023-12-12] MEDS ORDERED: HOME MED LIST COMPLETE! XX SCH (11:05)
[2023-12-12] MEDS ORDERED: IBUP200C28 PO (11:06)
[2023-12-12] MEDS ORDERED: NAPR-837 PO (11:19)
[2023-12-12] MEDS ORDERED: CYCL-707 PO (11:19)
[2023-12-12] MEDS ORDERED: LIDO5DIS41 TD (11:19)
[2023-12-12 11:25] VITALS: BP 178/81; TEMP 98.2; O2SAT 99
== END 2023-12-12 11:39 | disposition home or self-care (01) ==
LOC: M ED 07:14
DX: M54.41 Lumbago with sciatica, right side (principal); I10 Essential (primary) hypertension; K21.9 Gastro-esophageal reflux disease without esophagitis; E78.5 Hyperlipidemia, unspecified; Z86.73 Personal history of transient ischemic attack (TIA), and cerebral infarction without residual deficits; Z88.1 Allergy status to other antibiotic agents; Z79.82 Long term (current) use of aspirin; Z79.02 Long term (current) use of antithrombotics/antiplatelets; Z79.811 Long term (current) use of aromatase inhibitors; Z79.899 Other long term (current) drug therapy
CPT/HCPCS: 72131; 73502; 96372; 99283; J1885

== ENCOUNTER → 2024-01-17 | Outpatient (REF) | payer MEDICARE, MEDICAID ==
[~2024-01-17] MED LIST changes: +CYCL-707 PO; +IBUP200C28 PO; +LIDO5DIS41 TD; +NAPR-837 PO; +PANT-23 PO; +SENN-83 PO
== END ==
LOC: M LAB REF 10:09
PROVIDERS: ATTEND Urology
DX: C61 Malignant neoplasm of prostate (principal)

== ENCOUNTER → 2024-01-17 | Outpatient (CLI) | payer MEDICARE, MEDICAID ==
[2024-01-17 07:56] LABS: BLOOD UREA NITROGEN 20 MG/DL (9-23); CREATININE FOR GFR 0.88 MG/DL (0.70-1.30); GLOMERULAR FILTRATION RATE > 60.0 (>42)
== END ==
LOC: M LAB 06:27
PROVIDERS: ATTEND Psychiatry & Neurology Neurology
DX: I10 Essential (primary) hypertension (principal); C61 Malignant neoplasm of prostate

== ENCOUNTER 2024-02-10 08:41 | Emergency (ER) | payer MEDICARE, MEDICAID ==
[~2024-02-10] VITALS: Ht 165.1 cm; Wt 82.7 kg
[2024-02-10] MEDS ORDERED: BENZ200C70 (08:57)
[2024-02-10] MEDS ORDERED: CEFD1CAP9 (08:57)
[2024-02-10 10:10] VITALS: BP 135/72; TEMP 99.8; O2SAT 95
[2024-02-10] MEDS ORDERED: FLON1SPR NARES (10:42)
== END 2024-02-10 10:51 | disposition home or self-care (01) ==
LOC: M ED 08:41
DX: J12.3 Human metapneumovirus pneumonia (principal); I10 Essential (primary) hypertension; E78.5 Hyperlipidemia, unspecified; Z86.73 Personal history of transient ischemic attack (TIA), and cerebral infarction without residual deficits; K21.9 Gastro-esophageal reflux disease without esophagitis; Z88.0 Allergy status to penicillin; Z85.46 Personal history of malignant neoplasm of prostate; Z79.82 Long term (current) use of aspirin; Z79.899 Other long term (current) drug therapy

== ENCOUNTER → 2024-04-04 | Outpatient (CLI) | payer MEDICARE, MEDICAID ==
[~2024-04-04] MED LIST changes: +BENZ200C70; +CEFD1CAP9; +FLON1SPR NARES
== END ==
LOC: M EKG 15:01
PROVIDERS: ATTEND Internal Medicine Cardiovascular Disease
DX: I45.10 Unspecified right bundle-branch block (principal); I44.0 Atrioventricular block, first degree

== ENCOUNTER → 2024-04-11 | Outpatient (CLI) | payer MEDICARE, MEDICAID ==
[2024-04-11 09:15] LABS: BASO # 0.1 10^3/uL (0.0-0.2); EOS # 0.3 10^3/uL (0.0-0.5); EOS % 3.9 % (0.0-3.0); HEMATOCRIT 37.8 % (42.0-52.0); HEMOGLOBIN 12.8 g/dl (13.5-17.5); LYMPH # 1.5 10^3/uL (1.5-5.0); LYMPH % 20.1 % (24.0-44.0); MEAN CORPUSCULAR HEMOGLOBIN 30.8 pg (27.0-33.0); MEAN CORPUSCULAR HGB CONC 33.9 g/dl (32.0-36.5); MEAN CORPUSCULAR VOLUME 91.1 fl (80.0-96.0); MONO # 0.9 10^3/uL (0.0-0.8); MONO % 11.7 % (2.0-8.0); NEUTROPHILS # 4.6 10^3/uL (1.5-8.5); PLATELET COUNT, AUTOMATED 228 10^3/uL (150-450); RED BLOOD COUNT 4.15 10^6/uL (4.30-6.10); WHITE BLOOD COUNT 7.4 10^3/uL (4.0-10.0)
[2024-04-11 09:51] LABS: ALBUMIN 3.7 G/DL (3.2-5.2); ALKALINE PHOSPHATASE 120 U/L (46-116); ALT/SGPT 21 U/L (7.0-40); AST/SGOT 12 U/L (<34); BILIRUBIN,TOTAL 0.2 MG/DL (0.3-1.2); BLOOD UREA NITROGEN 16 MG/DL (9-23); CALCIUM LEVEL 9.2 MG/DL (8.3-10.6); CARBON DIOXIDE LEVEL 31 MMOL/L (20-31); CHLORIDE LEVEL 104 MMOL/L (98-107); GLOMERULAR FILTRATION RATE > 60.0 (>42); GLUCOSE, FASTING 93 MG/DL (74-106); POTASSIUM SERUM 4.1 MMOL/L (3.5-5.1); SODIUM LEVEL 139 MMOL/L (136-145); TOTAL PROTEIN 6.9 G/DL (5.7-8.2)
== END ==
LOC: M LAB 08:02
PROVIDERS: ATTEND Internal Medicine Cardiovascular Disease
DX: I35.8 Other nonrheumatic aortic valve disorders (principal); I10 Essential (primary) hypertension; R60.0 Localized edema; D64.9 Anemia, unspecified; I27.20 Pulmonary hypertension, unspecified

== ENCOUNTER → 2024-04-22 | Outpatient (CLI) | payer MEDICARE, MEDICAID | LOC: M PLAIMG 08:20 | PROVIDERS: ATTEND Internal Medicine Cardiovascular Disease | DX: I27.20 Pulmonary hypertension, unspecified (principal); I35.8 Other nonrheumatic aortic valve disorders; I44.0 Atrioventricular block, first degree ==

== ENCOUNTER → 2024-05-20 | Outpatient (CLI) | payer MEDICARE, MEDICAID ==
[2024-05-20 07:42] LABS: BLOOD UREA NITROGEN 26 MG/DL (9-23); CREATININE FOR GFR 1.08 MG/DL (0.70-1.30); GLOMERULAR FILTRATION RATE > 60.0 (>42)
[2024-05-20 07:43] LABS: VITAMIN B12 LEVEL 688 PG/ML (211-911)
== END ==
LOC: M LAB 06:37
PROVIDERS: ATTEND Internal Medicine Gastroenterology
DX: K56.600 Partial intestinal obstruction, unspecified as to cause (principal)

== ENCOUNTER → 2024-05-23 | Outpatient (CLI) | payer MEDICARE, MEDICAID ==
[~2024-05-23] MED LIST changes: +GLUCAGON INJ 1MG VIAL As Ordered ONE; +ISOVUE-370 76% 100ML VIAL As Ordered ONE; +NEULUMEX 0.1% SUSPENSION 450ML BOTTLE (FORMERLY VOLUMEN) As Ordered ONE
== END ==
LOC: M RAD 09:07
PROVIDERS: ATTEND Internal Medicine Gastroenterology
DX: K56.600 Partial intestinal obstruction, unspecified as to cause (principal)
CPT/HCPCS: 74177; J1610; Q9967

== ENCOUNTER → 2024-07-17 | Outpatient (CLI) | payer MEDICARE, MEDICAID ==
[~2024-07-17] MED LIST changes: -GLUCAGON INJ 1MG VIAL As Ordered ONE; -ISOVUE-370 76% 100ML VIAL As Ordered ONE; -NEULUMEX 0.1% SUSPENSION 450ML BOTTLE (FORMERLY VOLUMEN) As Ordered ONE; +SENN-187 PO; -SENN-83 PO
== END ==
LOC: M LAB 11:46
PROVIDERS: ATTEND Urology
DX: C61 Malignant neoplasm of prostate (principal)

== ENCOUNTER → 2024-07-18 | Outpatient (CLI) | payer MEDICARE, MEDICAID | LOC: M CARPUL 07:14 | PROVIDERS: ATTEND Internal Medicine Cardiovascular Disease | DX: R94.31 Abnormal electrocardiogram [ECG] [EKG] (principal); I44.0 Atrioventricular block, first degree ==

== ENCOUNTER 2024-10-22 09:48 | Day surgery (SDC) | payer MEDICARE, MEDICAID ==
[~2024-10-22] VITALS: Ht 165.1 cm; Wt 84.4 kg
[~2024-10-22 09:48] MED LIST changes: +STOO100C30 PO
[2024-10-22] MEDS ORDERED: propofoL 200 MG/20 ML VIAL As Ordered ONE (11:48)
[2024-10-22 12:13] VITALS: BP 143/76; O2SAT 100
== END 2024-10-22 12:16 | disposition home or self-care (01) ==
LOC: M OPP 09:48
PROVIDERS: ATTEND Internal Medicine Gastroenterology
DX: D12.3 Benign neoplasm of transverse colon (principal); K57.30 Diverticulosis of large intestine without perforation or abscess without bleeding; K57.32 Diverticulitis of large intestine without perforation or abscess without bleeding; R93.3 Abnormal findings on diagnostic imaging of other parts of digestive tract; K64.8 Other hemorrhoids

== ENCOUNTER → 2024-12-02 | Outpatient (CLI) | payer MEDICARE, MEDICAID | LOC: M WUC 09:15 | PROVIDERS: ATTEND Student in an Organized Health Care Education/Training Program | DX: M19.021 Primary osteoarthritis, right elbow (principal) ==

== ENCOUNTER → 2025-01-20 | Outpatient (CLI) | payer MEDICARE, MEDICAID | LOC: M LAB 06:45 | PROVIDERS: ATTEND Urology | DX: C61 Malignant neoplasm of prostate (principal) ==

== ENCOUNTER → 2025-04-22 | Outpatient (CLI) | payer OTHER, MEDICARE, MEDICAID ==
[~2025-04-22] MED LIST changes: +LIDO1ADH93 TD; -LIDO5DIS41 TD
== END ==
LOC: M PLAIMG 15:08
PROVIDERS: ATTEND Physician Assistant Surgical
DX: M51.362 Other intervertebral disc degeneration, lumbar region with discogenic back pain and lower extremity pain (principal)

== ENCOUNTER → 2025-05-01 | Outpatient (CLI) | payer MEDICARE, MEDICAID ==
[2025-05-01 10:42] LABS: BASO # 0.1 10^3/uL (0.0-0.2); BASO % 0.9 % (0.0-1.0); EOS # 0.2 10^3/uL (0.0-0.5); EOS % 2.7 % (0.0-3.0); LYMPH # 1.6 10^3/uL (1.5-5.0); LYMPH % 19.9 % (24.0-44.0); MONO # 0.8 10^3/uL (0.0-0.8); MONO % 10.3 % (2.0-8.0); NEUTROPHILS # 5.1 10^3/uL (1.5-8.5); NEUTROPHILS % 65.9 % (36.0-66.0); PLATELET COUNT, AUTOMATED 214 10^3/uL (150-450)
[2025-05-01 11:04] LABS: ALT/SGPT 25.0 U/L (7.0-40); AST/SGOT 24.0 U/L (<34); CALCIUM LEVEL 9.0 MG/DL (8.3-10.6); CARBON DIOXIDE LEVEL 30.0 MMOL/L (20-31); CHLORIDE LEVEL 101.0 MMOL/L (98-107); CHOLESTEROL LEVEL 158.0 MG/DL (<200); CHOLESTEROL RISK RATIO 4.4 (<5); CREATININE FOR GFR 0.92 MG/DL (0.70-1.30); GLOMERULAR FILTRATION RATE 86.2 (>42); LDL CHOLESTEROL 97.1 MG/DL (<100); NON-HDL-C 122.1 MG/DL; POTASSIUM SERUM 4.0 MMOL/L (3.5-5.1); SODIUM LEVEL 143.0 MMOL/L (136-145); TRIGLYCERIDES LEVEL 125.0 MG/DL (<150)
== END ==
LOC: M LAB 07:41
PROVIDERS: ATTEND Registered Nurse
DX: I10 Essential (primary) hypertension (principal); E78.2 Mixed hyperlipidemia

== ENCOUNTER → 2025-07-09 | Outpatient (CLI) | payer MEDICARE, MEDICAID ==
[~2025-07-09] MED LIST changes: -EZET10TA21 PO; +EZET10TA57 PO
== END ==
LOC: M LAB 06:37
PROVIDERS: ATTEND Urology
DX: C61 Malignant neoplasm of prostate (principal)

== ENCOUNTER → 2025-08-18 | Outpatient (CLI) | payer MEDICARE, MEDICAID ==
[2025-08-18 07:14] LABS: PLATELET COUNT, AUTOMATED 219 10^3/uL (150-450)
[2025-08-18 07:36] LABS: INR 0.98
== END ==
LOC: M LAB 06:21
PROVIDERS: ATTEND Physician Assistant Surgical
DX: Z01.818 Encounter for other preprocedural examination (principal); Z79.01 Long term (current) use of anticoagulants